=== PATIENT | male | born 1950 | race Caucasian/White ===

== ENCOUNTER 2018-03-31 15:24 | Inpatient (IN) | payer OTHER ==
[2018-03-31 19:25] VITALS: BMI 25.8
--- NOTE | 2018-03-31 21:23 | HP ---
"CIWA Score - CIWA Score Nausea/Vomitin-No Nausea/No Vomiting Muscle Tremors: 2 Anxiety: 3 Agitation: 3 Paroxysmal Sweats: 3 Orientation: 0-Oriented Tacttile Disturbances: 1-Very Mild Itch/Numbness Auditory Disturbances: 0-None Visual Disturbances: 1-Very Mild Sensitivity Headache: 0-None Present CIWA-Ar Total Score: 13 Admission ROS S - [facility] Chief Complaint: alcohol withdrawal sx Allergies/Adverse Reactions: Allergies Allergy/AdvReac Type Severity Reaction Status Date / Time No Known Allergies Allergy Verified 03/07/14 13:53 History of Present Illness: patient is a 67 yo male with hx of alcohol, cocaine, heroin dependence is here seeking detox. Last detox [facility] 2014. Reports hospitalized for right ankle cellulitis for two days [facility]. PMHX: HIV+ (no meds), GERD, blind r eye , glaucoma left eye. Denies suicidal / homicidal ideation. Denies hx of seizures or blackouts. Longest period of sobriety seven years. Reports relapsed passed five years ago and relapsed. | Reference #: [id number] Patient Name: Rah Vieira Date: 1950 Address: [address] [place] [address] Sex: Male Rx Written Rx Dispensed Drug Quantity Days Supply Prescriber Name 03/16/2018 03/18/2018 oxycodone hcl 20 mg tablet 60 30 Jenkins, Celina A 02/13/2018 02/16/2018 oxycodone hcl 20 mg tablet 60 30 Jenkins, Celina A 02/08/2018 02/08/2018 oxycodone hcl 30 mg tablet 21 7 Gerald David MD 01/14/2018 01/14/2018 oxycodone hcl 20 mg tablet 60 30 Jenkins, Celina A 01/07/2018 01/07/2018 oxycodone hcl 20 mg tablet 14 7 Jenkins, Celina A 12/09/2017 12/10/2017 oxycodone hcl 20 mg tablet 60 30 Bryan Ceron MD Patient Name: Rah Vieira Date: 1950 Address: [address] [place] [address] Sex: Male Rx Written Rx Dispensed Drug Quantity Days Supply Prescriber Name 01/01/2018 01/03/2018 oxycodone hcl 20 mg tablet 16 8 Seema Rahman Patient Name: Rah Vieira Date: 1950 Address: [address] [address] Sex: Male Rx Written Rx Dispensed Drug Quantity Days Supply Prescriber Name 11/04/2017 11/06/2017 oxycodone hcl 30 mg tablet 60 30 Jenkins, Celina A 10/08/2017 10/08/2017 oxycodone hcl 30 mg tablet 60 30 Jenkins, Celina A 09/30/2017 09/30/2017 oxycodone hcl 20 mg tablet 14 7 Bryan Ceron MD 08/20/2017 08/20/2017 oxycodone hcl 15 mg tablet 60 30 Jenkins, Celina A 06/25/2017 06/25/2017 oxycodone-acetaminophen 10-325 mg tab 60 30 Duane Nelson 05/27/2017 05/27/2017 oxycodone hcl 30 mg tablet 60 30 Bryan Ceron MD 05/20/2017 05/20/2017 oxycodone hcl 30 mg tablet 14 7 Bryan Ceron MD 05/13/2017 05/13/2017 oxycodone hcl 30 mg tablet 14 7 Bryan Ceron MD Patient Name: Rah Vieira Date: 1950 Address: [facility] [place] [address] Sex: Male Rx Written Rx Dispensed Drug Quantity Days Supply Prescriber Name 09/14/2017 09/29/2017 oxycodone hcl 30 mg tablet 5 2 Ronit Davenport 09/13/2017 09/14/2017 oxycodone hcl 30 mg tablet 60 15 Ronit Davenport 09/03/2017 09/03/2017 oxycodone hcl 30 mg tablet 40 10 Ronit Davenport Patient Name: Rah Vieira Jr Date: 1950 Address: [address] [place] [address] Sex: Male Rx Written Rx Dispensed Drug Quantity Days Supply Prescriber Name 08/08/2017 08/08/2017 oxycodone hcl 10 mg tablet 15 5 David Young 07/29/2017 07/29/2017 zolpidem tartrate 10 mg tablet 10 10 David Young 07/29/2017 07/29/2017 oxycodone hcl 10 mg tablet 30 10 David Young 04/25/2017 04/26/2017 oxycodone hcl 30 mg tablet 60 15 David Young Patient Name: Rah Vieira Date: 1950 Address: [address] [place] [address] Sex: Male Rx Written Rx Dispensed Drug Quantity Days Supply Prescriber Name 04/11/2017 04/11/2017 oxycodone hcl 30 mg tablet 60 15 David oYung Exam Limitations: No Limitations - Ebola screening Have you traveled outside of the country in the last 21 days: No Have you had contact with anyone from an Ebola affected area: No Have you been sick,other than usual withdrawal symptoms: No - Review of Systems Constitutional: Chills, Changes in sleep, Unintentional Wgt. Loss (10 lbs in the past three months) EENT: reports: No Symptoms Reported Respiratory: reports: No Symptoms reported GI: reports: Poor Appetite, Poor Fluid Intake : reports: No Symptoms Reported Musculoskeletal: reports: No Symptoms Reported Integumentary: reports: See HPI Neuro: reports: No Symptoms reported Endocrine: reports: Increased Thirst Hematology: reports: See HPI Psychiatric: reports: Orientated x3, Depressed Other Systems: Reviewed and Negative Patient History - Patient Medical History Hx Anemia: No Hx Asthma: No Hx Chronic Obstructive Pulmonary Disease (COPD): No Hx Cancer: No Hx Cardiac Disorders: No Hx Congestive Heart Failure: No Hx Hypertension: No Hx Hypercholesterolemia: No Hx Pacemaker: No HX Cerebrovascular Accident: No Hx Seizures: No Hx Dementia: No Hx Diabetes: No Hx Gastrointestinal Disorders: Yes (GERD ) Hx Genitourinary Disorders: No Hx Sexually Transmitted Disorders: No Hx Renal Disease (ESRD): No Hx Thyroid Disease: No Hx Human Immunodeficiency Virus (HIV): Yes (SINCE 1995 -T Cell = 950, no meds ) Hx Hepatitis C: Yes (Treated three months ago ) Hx Depression: Yes Hx Suicide Attempt: No Hx Bipolar Disorder: No Hx Schizophrenia: No - Patient Surgical History Past Surgical History: Yes Hx Neurologic Surgery: No Hx Cataract Extraction: No Hx Cardiac Surgery: No Hx Lung Surgery: No Hx Breast Surgery: No Hx Breast Biopsy: No Hx Abdominal Surgery: No Hx Appendectomy: No Hx Cholecystectomy: No Hx Genitourinary Surgery: No Hx Section: No Hx Orthopedic Surgery: Yes (R ANKLE REPLACEMENT IN 2006) Anesthesia Reaction: No - PPD History Previous Implant?: No Documented Results: Negative w/proof Date: 03/09/14 Results: 0 mm PPD to be Administered?: Yes - Smoking Cessation Smoking history: Current every day smoker Have you smoked in the past 12 months: Yes Aproximately how many cigarettes per day: 10 Hx Chewing Tobacco Use: No Initiated information on smoking cessation: Yes 'Breaking Loose' booklet given: 03/31/18 - Substance & Tx. History Hx Alcohol Use: Yes Hx Substance Use: Yes Substance Use Type: Alcohol, Heroin Hx Substance Use Treatment: Yes (Last detox [facility] 2014.) - Substances Abused Alcohol Route: Oral Frequency: Daily Amount used: one fith of bacardi + 24 oz x 8 cans of beer Age of first use: 17 Date of Last Use: 03/31/18 Family Disease History - Family Disease History Family Disease History: Other: Brother (hx of alcoholism, OBI ) Admission Physical Exam S - Vital Signs Vital Signs: Vital Signs - 24 hr 03/31/18 19:21 Temperature 98.7 F Pulse Rate 77 Respiratory 19 Rate Blood Pressure 129/69 - Physical General Appearance: Yes: Disheveled, Mild Distress, Sweating, Anxious HEENTM: Yes: EOMI, Hearing grossly Normal, Normal ENT Inspection, Normocephalic , Normal Voice, APRIL, Pharynx Normal, Tm's normal, Other (poor dentition, dry mucous membranes) Respiratory: Yes: Chest Non-Tender, Lungs Clear, Normal Breath Sounds, No Respiratory Distress, No Accessory Muscle Use Neck: Yes: Within Normal Limits Breast: Yes: Breast Exam Deferred Cardiology: Yes: Regular Rhythm, Regular Rate Abdominal: Yes: Normal Bowel Sounds, Non Tender, Flat Genitourinary: Yes: Within Normal Limits Back: Yes: Normal Inspection Musculoskeletal: Yes: full range of Motion, Gait Steady, Pelvis Stable, Other ( cane for ambulation) Extremities: Yes: Normal Capillary Refill, Normal Inspection, Normal Range of Motion, Non-Tender 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: 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: 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, Fully Oriented, Alert, Motor Strength 5/5, Depressed Affect Integumentary: Yes: Normal Color, Warm, Moist, Other (hyperpigmentation right ankle) Lymphatic: Yes: Within Normal Limits - Diagnostic (1) Alcohol dependence with withdrawal Current Visit: Yes Status: Acute Qualifiers: Complication of substance-induced condition: uncomplicated Qualified Code(s ): F10.230 - Alcohol dependence with withdrawal, uncomplicated (2) Opioid dependence Current Visit: Yes Status: Active (3) CELLULITIS RT ANKLE Current Visit: Yes Status: Chronic (4) GERD (gastroesophageal reflux disease) Current Visit: Yes Status: Chronic Qualifiers: Esophagitis presence: without esophagitis Qualified Code(s): K21.9 - Gastro -esophageal reflux disease without esophagitis (5) HIV Current Visit: Yes Status: Chronic Comment: currently not taking medication Cleared for Admission [facility] - Detox or Rehab [facility] Level of Care: Medically Managed Detox Regimen/Protocol: Librium [facility] Breath Alcohol Content Breath Alcohol Content: 0 Urine Drug Screen - Results Drug Screen Negative: No Urine Drug Screen Results: OPI-Opiates, FEN-Fentanyl"
[2018-03-31] MEDS ORDERED: MAG HYDROX/AL HYDROX/SIMETH 30 ML UNIT-DOSE CUP PO PRN (21:46)
[2018-03-31] MEDS ORDERED: chlordiazePOXIDE HCL 25 MG CAPSULE PO PRN (21:46)
[2018-03-31] MEDS ORDERED: guaiFENesin/D-METHORPHAN HB 10 ML UNIT-DOSE CUPS PO PRN (21:46)
[2018-03-31] MEDS ORDERED: MENTHOL/PHENOL 1 EACH UD MM PRN (21:46)
[2018-03-31] MEDS ORDERED: ACETAMINOPHEN 325 MG TABLET (FP) PO PRN (21:46)
[2018-03-31] MEDS ORDERED: P-EPHED 60MG/TRIPROLIDI 2.5MG TABLET PO PRN (21:46)
[2018-03-31] MEDS ORDERED: IBUPROFEN 400 MG TABLET (FP) PO PRN (21:46)
[2018-03-31] MEDS ORDERED: NICOTINE POLACRILEX 2 MG GUM BC PRN (21:46)
[2018-03-31] MEDS ORDERED: MAGNESIUM CITRATE 300 ML BOTTLE PO PRN (21:46)
[2018-03-31] MEDS ORDERED: MAGNESIUM HYDROX 2400MG/30ML ORAL SUSPENSION 30 ML CUP PO PRN (21:46)
[2018-03-31] MEDS ORDERED: LOPERAMIDE HCL 2 MG CAPSULE PO PRN (21:46)
--- NOTE | 2018-03-31 21:54 | PN ---
[facility] Progress Note Note: Patient agreed to admission for ETOH detox. Patient is aware that he will not receive Percocet on the unit for pain, and other alternatives will be provided, patient verbalizes understanding. Reports he was not had opiates in the past two days since he was admitted to [facility] prior to presenting to this facility. Continue to monitor
[2018-03-31] MEDS ORDERED: MELATONIN 5 MG TABLETS PO PRN (22:00)
[2018-03-31] MEDS ORDERED: chlordiazePOXIDE HCL 25 MG CAPSULE PO ONE (22:30)
[2018-04-01] MEDS: SULFAMETHOXAZOLE/TRIMETHOPRIM 800MG/160MG D.S. TABLET PO SCH ×3 (00:01→22:48)
[2018-04-01] MEDS: CYCLOBENZAPRINE HCL 10 MG TABLET (FP) PO SCH ×4 (00:01→22:48)
[2018-04-01] MEDS: LATANOPROST 0.005% OPHTH SOLN 2.5ML BOTTLE OS SCH ×2 (00:01→22:50)
[2018-04-01] MEDS: THIAMINE HCL 100 MG TABLET (FP) PO SCH ×2 (00:01→23:05)
[2018-04-01] MEDS: BACITRACIN 0.9 GM PACKET TP SCH ×3 (00:01→22:49)
[2018-04-01] MEDS: BRIMONIDINE TARTRATE 0.15% OPHTHALMIC 5 ML BOTTLE OS SCH ×3 (00:02→22:48)
[2018-04-01] MEDS: chlordiazePOXIDE HCL 25 MG CAPSULE PO SCH ×5 (06:00→22:48)
--- NOTE | 2018-04-01 08:54 | CONSULT ---
[facility] Psychiatric Consult - Data Date of interview: 04/01/18 Admission source: [facility] Identifying data: This is a 67 years old male, single, living alone, unemployed , on SSI, ambulating with cane, with no psychiatric hospitalization history, with ;long history of Alochol, Opioids, Cocaine and Nicotine dependence, reporting Alcohol withdrawal symptoms and seeking detox. Denies suicidal and homicidal history. Substance Abuse History: - Smoking Cessation. Smoking history: Current every day smoker. Have you smoked in the past 12 months: Yes. Aproximately how many cigarettes per day: 10. Hx Chewing Tobacco Use: No. Initiated information on smoking cessation: Yes. 'Breaking Loose' booklet given: 03/31/18. - Substance & Tx. History. Hx Alcohol Use: Yes. Hx Substance Use: Yes. Substance Use Type : Alcohol, Heroin. Hx Substance Use Treatment: Yes (Last detox [facility] 2014.). - Substances Abused. Alcohol. Route: Oral. Frequency: Daily. Amount used: one fith of bacardi + 24 oz x 8 cans of beer. Age of first use: 17. Date of Last Use: 03/31/18 Medical History: GERD, HIV+, HepC+, Right eye blindness, left eye Glaucoma, ambultes with Cane, history of Cellulitis. Psychiatric History: Patient reports history of depression and anxiety, reports insomnia, reports taling prior to admission: Seroquel 100mg po qhs. Denies history of psychiatric admissions. Physical/Sexual Abuse/Trauma History: Denies Additional Comment: Seroquel 100mg po qhs Mental Status Exam - Mental Status Exam Alert and Oriented to: Person Cognitive Function: Fair Patient Appearance: Unkempt Mood: Sad Affect: Flat Patient Behavior: Cooperative Speech Pattern: Appropriate Voice Loudness: Mildly Soft/Quiet Thought Process: Circumstantial, Goal Oriented Thought Disorder: Being Controlled Hallucinations: Denies Suicidal Ideation: Denies Homicidal Ideation: Denies Insight/Judgement: Fair Sleep: Difficulty falling asleep Appetite: Weight loss Muscle strength/Tone: Mild Hypotonicity Gait/Station: Shuffling Additional Comments: Seroquel 100mg po qhs Psychiatric Findings - Problem List ([place] 1, 2,3) (1) CELLULITIS RT ANKLE Current Visit: Yes Status: Chronic (2) GERD (gastroesophageal reflux disease) Current Visit: Yes Status: Chronic Qualifiers: Esophagitis presence: without esophagitis Qualified Code(s): K21.9 - Gastro -esophageal reflux disease without esophagitis (3) HIV Current Visit: Yes Status: Chronic Comment: currently not taking medication (4) Alcohol dependence Current Visit: No Status: Active (5) Cocaine dependence Current Visit: No Status: Acute (6) HEP. C Current Visit: No Status: Chronic (7) Non-healing ulcer of ankle Current Visit: No Status: Chronic - Initial Treatment Plan Initial Treatment Plan: Seroquel 100mg po qhs
--- NOTE | 2018-04-01 09:51 | EKG ---
Test Reason : Blood Pressure : / mmHG Vent. Rate : 071 BPM Atrial Rate : 071 BPM P-R Int : 152 ms QRS Dur : 130 ms QT Int : 434 ms P-R-T Axes : 043 -65 052 degrees QTc Int : 471 ms NORMAL SINUS RHYTHM RIGHT BUNDLE BRANCH BLOCK LEFT ANTERIOR FASCICULAR BLOCK BIFASCICULAR BLOCK MINIMAL VOLTAGE CRITERIA FOR LVH, MAY BE NORMAL VARIANT ABNORMAL ECG NO PREVIOUS ECGS AVAILABLE Confirmed by CANDY HUGHES, KIM ([id number]) on 04/01/2018 9:51:08 AM Referred By: Confirmed By:KIM GUPTA MD
[2018-04-01 10:06] LABS: HEMATOCRIT 32.1 % (35.4-49); HEMOGLOBIN 10.1 GM/dL (11.7-16.9); MCHC 31.5 g/dl (32.0-35.9); MEAN CELL VOLUME 82.7 fl (80-96); MEAN PLT VOLUME 9.2 fl (7.5-11.1); PLATELET COUNT 206 K/MM3 (134-434); RBC 3.88 M/mm3 (4.00-5.60); RDW 17.4 % (11.9-15.9); WHITE BLOOD COUNT 5.1 K/mm3 (4.0-10.0)
--- NOTE | 2018-04-01 10:28 | PN ---
S CIWA - CIWA Score Nausea/Vomitin-No Nausea/No Vomiting Muscle Tremors: 4-Moderate,w/Arms Extend Anxiety: 2 Agitation: 3 Paroxysmal Sweats: 1-Minimal Palms Moist Orientation: 0-Oriented Tacttile Disturbances: 1-Very Mild Itch/Numbness Auditory Disturbances: 1-Very Mild Visual Disturbances: 0-None Headache: 0-None Present CIWA-Ar Total Score: 12 [facility] Progress Note (SOAP) Subjective: sweat tremor headache anxiety patient stated that he is on monthly opiate based medication for pain last took "many days ago" patient denies opioid withdrawal sx denies pain Objective: 04/01/18 10:27 Vital Signs Temperature 97.5 F L 04/01/18 09:53 Pulse Rate 63 04/01/18 09:53 Respiratory Rate 19 04/01/18 09:53 Blood Pressure 128/75 04/01/18 09:53 O2 Sat by Pulse Oximetry (%) Laboratory Last Values WBC 5.1 K/mm3 (4.0-10.0) 04/01/18 07:30 RBC 3.88 M/mm3 (4.00-5.60) L 04/01/18 07:30 Hgb 10.1 GM/dL (11.7-16.9) L 04/01/18 07:30 Hct 32.1 % (35.4-49) L 04/01/18 07:30 MCV 82.7 fl (80-96) 04/01/18 07:30 MCH 26.0 pg (25.7-33.7) D 04/01/18 07:30 MCHC 31.5 g/dl (32.0-35.9) L 04/01/18 07:30 RDW 17.4 % (11.9-15.9) H 04/01/18 07:30 Plt Count 206 K/MM3 (134-434) 04/01/18 07:30 MPV 9.2 fl (7.5-11.1) 04/01/18 07:30 lab noted Assessment: 04/01/18 10:27 alcohol withdrawal sx Plan: continue alcohol detox
[2018-04-01 10:49] LABS: ALK PHOS 88 U/L (45-117); ANION GAP 7 MMOL/L (8-16); BILIRUBIN,TOTAL 0.2 mg/dL (0.2-1); BLOOD UREA NITROGEN 22 mg/dL (7-18); CALCIUM 8.4 mg/dL (8.5-10.1); CHLORIDE 108 mmol/L (98-107); CO2 23 mmol/L (21-32); CREATININE 1.2 mg/dL (0.55-1.3); GLUCOSE,RANDOM 81 mg/dL (74-106); POTASSIUM 4.5 mmol/L (3.5-5.1); SGOT/AST 18 U/L (15-37); SGPT/ALT 14 U/L (13-61); SODIUM 137 mmol/L (136-145); TOT PROT 7.4 g/dl (6.4-8.2)
[2018-04-01] MEDS: NICOTINE 14 MG/24 HOURS TOPICAL PATCH TD SCH (12:31)
[2018-04-01] MEDS: PRENATAL VITAMINS W/ FOLIC ACID TABLET (FP) PO SCH (12:32)
[2018-04-01] MEDS: hydrOXYzine PAMOATE 50 MG CAPSULE (FP) PO PRN (14:54)
[2018-04-01] MEDS: QUEtiapine FUMARATE 100 MG TABLET (FP) PO SCH (20:55)
[2018-04-02] MEDS: chlordiazePOXIDE HCL 25 MG CAPSULE PO SCH ×3 (06:37→17:54)
[2018-04-02] MEDS: CYCLOBENZAPRINE HCL 10 MG TABLET (FP) PO SCH ×3 (06:37→23:39)
--- NOTE | 2018-04-02 10:37 | PN ---
S CIWA - CIWA Score Nausea/Vomitin-No Nausea/No Vomiting Muscle Tremors: 3 Anxiety: 2 Agitation: 2 Paroxysmal Sweats: 1-Minimal Palms Moist Orientation: 0-Oriented Tacttile Disturbances: 0-None Auditory Disturbances: 0-None Visual Disturbances: 0-None Headache: 1-Very Mild CIWA-Ar Total Score: 9 [facility] Progress Note (SOAP) Subjective: tremor sweat restlessness Objective: 04/02/18 10:37 Vital Signs Temperature 97.7 F 04/02/18 07:40 Pulse Rate 61 04/02/18 07:40 Respiratory Rate 18 04/02/18 07:40 Blood Pressure 130/70 04/02/18 07:40 O2 Sat by Pulse Oximetry (%) Laboratory Last Values WBC 5.1 K/mm3 (4.0-10.0) 04/01/18 07:30 RBC 3.88 M/mm3 (4.00-5.60) L 04/01/18 07:30 Hgb 10.1 GM/dL (11.7-16.9) L 04/01/18 07:30 Hct 32.1 % (35.4-49) L 04/01/18 07:30 MCV 82.7 fl (80-96) 04/01/18 07:30 MCH 26.0 pg (25.7-33.7) D 04/01/18 07:30 MCHC 31.5 g/dl (32.0-35.9) L 04/01/18 07:30 RDW 17.4 % (11.9-15.9) H 04/01/18 07:30 Plt Count 206 K/MM3 (134-434) 04/01/18 07:30 MPV 9.2 fl (7.5-11.1) 04/01/18 07:30 Sodium 137 mmol/L (136-145) 04/01/18 07:30 Potassium 4.5 mmol/L (3.5-5.1) 04/01/18 07:30 Chloride 108 mmol/L (98-107) H 04/01/18 07:30 Carbon Dioxide 23 mmol/L (21-32) 04/01/18 07:30 Anion Gap 7 MMOL/L (8-16) L 04/01/18 07:30 BUN 22 mg/dL (7-18) H 04/01/18 07:30 Creatinine 1.2 mg/dL (0.55-1.3) 04/01/18 07:30 Creat Clearance w eGFR > 60 (>60) 04/01/18 07:30 Random Glucose 81 mg/dL (74-106) 04/01/18 07:30 Calcium 8.4 mg/dL (8.5-10.1) L 04/01/18 07:30 Total Bilirubin 0.2 mg/dL (0.2-1) 04/01/18 07:30 AST 18 U/L (15-37) 04/01/18 07:30 ALT 14 U/L (13-61) 04/01/18 07:30 Alkaline Phosphatase 88 U/L (45-117) 04/01/18 07:30 Total Protein 7.4 g/dl (6.4-8.2) 04/01/18 07:30 Albumin 3.0 g/dl (3.4-5.0) L 04/01/18 07:30 RPR Titer Nonreactive (NONREACTIVE) 04/01/18 07:30 lab noted Assessment: 04/02/18 10:37 withdrawal sx Plan: continue detox
[2018-04-02] MEDS: PRENATAL VITAMINS W/ FOLIC ACID TABLET (FP) PO SCH (12:42)
[2018-04-02] MEDS: NICOTINE 14 MG/24 HOURS TOPICAL PATCH TD SCH (12:42)
[2018-04-02] MEDS: BACITRACIN 0.9 GM PACKET TP SCH ×2 (12:42→23:39)
[2018-04-02] MEDS: SULFAMETHOXAZOLE/TRIMETHOPRIM 800MG/160MG D.S. TABLET PO SCH ×2 (12:42→23:41)
[2018-04-02] MEDS: BRIMONIDINE TARTRATE 0.15% OPHTHALMIC 5 ML BOTTLE OS SCH ×2 (12:43→23:39)
[2018-04-02 18:28] LABS: URINE APPEARANCE CLEAR; URINE BILIRUBIN NEGATIVE (<2.0 mg/dL); URINE COLOR LTYELLOW; URINE GLUCOSE (UA) NEGATIVE (NEGATIVE); URINE KETONE NEGATIVE (NEGATIVE); URINE LEUK ESTERASE NEGATIVE (NEGATIVE); URINE NITRITE NEGATIVE (NEGATIVE); URINE PROTEIN NEGATIVE (NEGATIVE); URINE UROBILINOGEN NEGATIVE mg/dL (0.2-1.0)
[2018-04-02] MEDS ORDERED: cloNIDine HCL 0.1 MG TABLET PO ONE (22:44)
[2018-04-02] MEDS: ONDANSETRON *ODT* 4 MG TABLET SL PRN (23:02)
[2018-04-02] MEDS: THIAMINE HCL 100 MG TABLET (FP) PO SCH (23:16)
[2018-04-02] MEDS: chlordiazePOXIDE 5 MG CAPSULE PO SCH (23:18)
[2018-04-02] MEDS: QUEtiapine FUMARATE 100 MG TABLET (FP) PO SCH (23:39)
[2018-04-02] MEDS: LATANOPROST 0.005% OPHTH SOLN 2.5ML BOTTLE OS SCH (23:39)
[2018-04-03] MEDS: CYCLOBENZAPRINE HCL 10 MG TABLET (FP) PO SCH (06:45)
[2018-04-03] MEDS: chlordiazePOXIDE 5 MG CAPSULE PO SCH ×2 (06:46→11:45)
[2018-04-03] MEDS: ONDANSETRON *ODT* 4 MG TABLET SL PRN (07:14)
[2018-04-03] MEDS ORDERED: IBUPROFEN 400 MG TABLET (FP) PO PRN (09:36)
[2018-04-03] MEDS ORDERED: TRIMETHOBENZAMIDE HCL 200MG/2ML INJ IM PRN (09:49)
[2018-04-03 10:01] VITALS: BP 148/88; PULSE 98; TEMP 98.4
--- NOTE | 2018-04-03 10:28 | PN ---
S Progress Note Note: PATIENT C/O SHAKES AND NAUSEA AND VOMITING. Vital Signs Temperature 98.4 F 04/03/18 10:00 Pulse Rate 98 H 04/03/18 10:00 Respiratory Rate 18 04/03/18 10:00 Blood Pressure 148/88 04/03/18 10:00 O2 Sat by Pulse Oximetry (%) Laboratory Tests 04/01/18 04/01/18 04/01/18 07:30 07:30 07:30 WBC 5.1 RBC 3.88 L Hgb 10.1 L Hct 32.1 L MCV 82.7 MCH 26.0 D MCHC 31.5 L RDW 17.4 H Plt Count 206 MPV 9.2 Sodium 137 Potassium 4.5 Chloride 108 H Carbon Dioxide 23 Anion Gap 7 L BUN 22 H Creatinine 1.2 Creat Clearance w eGFR > 60 Random Glucose 81 Calcium 8.4 L Total Bilirubin 0.2 AST 18 ALT 14 Alkaline Phosphatase 88 Total Protein 7.4 Albumin 3.0 L Urine Color Urine Appearance Urine pH Ur Specific Alexis Urine Protein Urine Glucose (UA) Urine Ketones Urine Blood Urine Nitrite Urine Bilirubin Urine Urobilinogen Ur Leukocyte Esterase RPR Titer Nonreactive 04/02/18 14:15 WBC RBC Hgb Hct MCV MCH MCHC RDW Plt Count MPV Sodium Potassium Chloride Carbon Dioxide Anion Gap BUN Creatinine Creat Clearance w eGFR Random Glucose Calcium Total Bilirubin AST ALT Alkaline Phosphatase Total Protein Albumin Urine Color Ltyellow Urine Appearance Clear Urine pH 6.0 Ur Specific Alexis 1.020 Urine Protein Negative Urine Glucose (UA) Negative Urine Ketones Negative Urine Blood Negative Urine Nitrite Negative Urine Bilirubin Negative Urine Urobilinogen Negative Ur Leukocyte Esterase Negative RPR Titer SKIN WARM AND MOIST CAR S1S2 RESP CTA BL GI SOFT, BS+ NT EXT +TREMORS, FULL ROM ALERT AND ORIENTED X 3 A/P WITHDRAWAL SYNDROME CONTINUE DETOX ORAL FLUIDS ENCOURAGED TIGAN 200MG IM PRN ORDERED CONTINUE TO MONITOR CLINICALLY
[2018-04-03] MEDS: PRENATAL VITAMINS W/ FOLIC ACID TABLET (FP) PO SCH (11:41)
[2018-04-03] MEDS: hydrOXYzine PAMOATE 50 MG CAPSULE (FP) PO PRN (11:41)
[2018-04-03] MEDS: SULFAMETHOXAZOLE/TRIMETHOPRIM 800MG/160MG D.S. TABLET PO SCH (11:41)
[2018-04-03] MEDS: BRIMONIDINE TARTRATE 0.15% OPHTHALMIC 5 ML BOTTLE OS SCH (11:42)
[2018-04-03] MEDS: NICOTINE 14 MG/24 HOURS TOPICAL PATCH TD SCH (11:43)
[2018-04-03] MEDS: BACITRACIN 0.9 GM PACKET TP SCH (12:02)
[2018-04-03] MEDS ORDERED: chlordiazePOXIDE HCL 10 MG CAPSULE PO SCH (23:00)
--- NOTE | 2018-04-04 10:38 | EKG ---
Test Reason : Blood Pressure : / mmHG Vent. Rate : 064 BPM Atrial Rate : 064 BPM P-R Int : 138 ms QRS Dur : 128 ms QT Int : 434 ms P-R-T Axes : 030 -67 010 degrees QTc Int : 447 ms NORMAL SINUS RHYTHM RIGHT BUNDLE BRANCH BLOCK LEFT ANTERIOR FASCICULAR BLOCK BIFASCICULAR BLOCK MINIMAL VOLTAGE CRITERIA FOR LVH, MAY BE NORMAL VARIANT ABNORMAL ECG WHEN COMPARED WITH ECG OF 31-MAR-2018 23:28, NONSPECIFIC T WAVE ABNORMALITY NOW EVIDENT IN INFERIOR LEADS Confirmed by JENA OSMAN MD ([id number]) on 04/04/2018 10:37:48 AM Referred By: Confirmed By:JENA OSMAN MD
== END 2018-04-03 13:50 | disposition left against medical advice (07) | DRG 894 ==
LOC: YASAS 15:24 → Y6N 22:05
PROC: HZ2ZZZZ Detoxification Services for Substance Abuse Treatment (ICD-10-PCS; principal; 2018-03-31)
DX: F10.230 Alcohol dependence with withdrawal, uncomplicated (principal); F14.20 Cocaine dependence, uncomplicated; L03.115 Cellulitis of right lower limb; L97.30 Non-pressure chronic ulcer of unspecified ankle; F17.210 Nicotine dependence, cigarettes, uncomplicated; K21.9 Gastro-esophageal reflux disease without esophagitis; Z21 Asymptomatic human immunodeficiency virus [HIV] infection status; B18.2 Chronic viral hepatitis C; H54.40 Blindness, one eye, unspecified eye; H40.9 Unspecified glaucoma; R26.2 Difficulty in walking, not elsewhere classified; Z99.89 Dependence on other enabling machines and devices
CPT/HCPCS: 36415; 80053; 81003; 85027; 86593; 93005; 93010; J0735; Q0162

== ENCOUNTER 2020-12-06 10:23 | Inpatient (IN) | payer MEDICARE, OTHER ==
[2020-12-06 13:20] VITALS: BMI 27.3
[2020-12-06] MEDS ORDERED: IBUPROFEN 400 MG TABLET (FP) PO PRN (14:04)
[2020-12-06] MEDS ORDERED: METHOCARBAMOL 500 MG TABLET PO PRN (14:04)
[2020-12-06] MEDS ORDERED: BISMUTH SUBSALICYLATE 262 MG/15 ML BTL PO PRN (14:04)
[2020-12-06] MEDS ORDERED: METHADONE HCL 10 MG TABLET (FOR DETOX USE ONLY) PO ONE (14:04)
[2020-12-06] MEDS ORDERED: MAGNESIUM HYDROX 2400MG/30ML ORAL SUSPENSION 30 ML CUP PO PRN (14:04)
[2020-12-06] MEDS ORDERED: ONDANSETRON *ODT* 4 MG TABLET SL PRN (14:04)
[2020-12-06] MEDS ORDERED: cloNIDine HCL 0.1 MG TABLET PO PRN (14:04)
[2020-12-06] MEDS ORDERED: MAGNESIUM CITRATE 300 ML BOTTLE PO PRN (14:04)
[2020-12-06] MEDS ORDERED: MAG HYDROX/AL HYDROX/SIMETH 30 ML UNIT-DOSE CUP PO PRN (14:04)
[2020-12-06] MEDS ORDERED: diazePAM 5 MG TABLET PO PRN (14:04)
[2020-12-06] MEDS ORDERED: ACETAMINOPHEN 325 MG TABLET (FP) PO PRN ×2 (14:04)
[2020-12-06] MEDS ORDERED: MENTHOL/PHENOL 1 EACH UD MM PRN (14:04)
[2020-12-06] MEDS: PRENATAL VITAMINS W/ FOLIC ACID TABLET (FP) PO SCH (15:34)
[2020-12-06] MEDS: NICOTINE 21 MG/24 HOURS TOPICAL PATCH TD SCH (15:34)
[2020-12-06] MEDS: NICOTINE POLACRILEX 2 MG GUM BUC PRN (15:35)
[2020-12-06] MEDS: diazePAM 5 MG TABLET PO SCH ×3 (15:41→22:42)
[2020-12-06] MEDS: hydrOXYzine PAMOATE 25 MG CAPSULE (FP) PO SCH ×2 (18:00→22:43)
[2020-12-06] MEDS: BRIMONIDINE TARTRATE 0.15% OPHTHALMIC 5 ML BOTTLE OS SCH (22:43)
[2020-12-06] MEDS: LATANOPROST 0.005% OPHTH SOLN 2.5ML BOTTLE OS SCH (22:43)
[2020-12-06] MEDS: THIAMINE HCL 100 MG TABLET (FP) PO SCH (22:43)
[2020-12-06] MEDS: MELATONIN 5 MG TABLETS PO SCH (22:43)
[2020-12-07] MEDS: diazePAM 5 MG TABLET PO SCH ×4 (07:23→23:02)
[2020-12-07] MEDS: hydrOXYzine PAMOATE 25 MG CAPSULE (FP) PO SCH ×5 (07:24→23:02)
[2020-12-07] MEDS ORDERED: METHADONE (DETOX) 20 MG, METHADONE (DETOX) 5 MG PO ONE (10:00)
[2020-12-07] MEDS: PRENATAL VITAMINS W/ FOLIC ACID TABLET (FP) PO SCH (11:05)
[2020-12-07] MEDS: TOLNAFTATE 1% CREAM 15 GM TUBE TP SCH ×2 (11:07→23:02)
[2020-12-07] MEDS: NICOTINE POLACRILEX 2 MG GUM BUC PRN (11:07)
[2020-12-07] MEDS: NICOTINE 21 MG/24 HOURS TOPICAL PATCH TD SCH (11:07)
[2020-12-07] MEDS: BICTEGRAV/EMTRICIT/TENOFOV (BIKTARVY) 50-200-25 MG TABLET PO SCH (11:08)
[2020-12-07] MEDS: BRIMONIDINE TARTRATE 0.15% OPHTHALMIC 5 ML BOTTLE OS SCH ×2 (11:08→23:02)
[2020-12-07] MEDS ORDERED: METHADONE HCL 5 MG TABLET (FOR DETOX USE ONLY) ONE (11:09)
[2020-12-07] MEDS ORDERED: METHADONE HCL 10 MG TABLET (FOR DETOX USE ONLY) ONE (11:09)
[2020-12-07] MEDS: MELATONIN 5 MG TABLETS PO SCH (23:02)
[2020-12-07] MEDS: THIAMINE HCL 100 MG TABLET (FP) PO SCH (23:03)
[2020-12-07] MEDS: LATANOPROST 0.005% OPHTH SOLN 2.5ML BOTTLE OS SCH (23:03)
[2020-12-08] MEDS: hydrOXYzine PAMOATE 25 MG CAPSULE (FP) PO SCH ×2 (06:10→11:14)
[2020-12-08] MEDS: diazePAM 5 MG TABLET PO SCH ×3 (06:10→22:31)
[2020-12-08] MEDS: BICTEGRAV/EMTRICIT/TENOFOV (BIKTARVY) 50-200-25 MG TABLET PO SCH (07:07)
[2020-12-08] MEDS ORDERED: METHADONE HCL 10 MG TABLET (FOR DETOX USE ONLY) PO ONE (10:00)
[2020-12-08] MEDS ORDERED: hydrOXYzine PAMOATE 25 MG CAPSULE (FP) PO PRN (10:03)
[2020-12-08 10:10] LABS: HEMATOCRIT 37.7 % (35.4-49); MCH 26.8 pg (25.7-33.7); MCHC 31.8 g/dl (32.0-35.9); MEAN CELL VOLUME 84.2 fl (80-96); MEAN PLT VOLUME 9.7 fl (7.5-11.1); PLATELET COUNT 227 10^3/uL (134-434); RBC 4.48 M/mm3 (4.00-5.60); RDW 16.9 % (11.9-15.9); WHITE BLOOD COUNT 4.7 K/mm3 (4.0-10.0)
[2020-12-08] MEDS: PRENATAL VITAMINS W/ FOLIC ACID TABLET (FP) PO SCH (11:06)
[2020-12-08] MEDS: TOLNAFTATE 1% CREAM 15 GM TUBE TP SCH ×2 (11:07→22:33)
[2020-12-08] MEDS: NICOTINE 21 MG/24 HOURS TOPICAL PATCH TD SCH (11:07)
[2020-12-08] MEDS: BRIMONIDINE TARTRATE 0.15% OPHTHALMIC 5 ML BOTTLE OS SCH ×2 (11:12→22:34)
[2020-12-08] MEDS: THIAMINE HCL 100 MG TABLET (FP) PO SCH (22:31)
[2020-12-08] MEDS: MELATONIN 5 MG TABLETS PO SCH (22:31)
[2020-12-08] MEDS: LATANOPROST 0.005% OPHTH SOLN 2.5ML BOTTLE OS SCH (22:34)
[2020-12-09] MEDS: diazePAM 5 MG TABLET PO SCH ×2 (06:33→18:29)
[2020-12-09] MEDS ORDERED: METHADONE HCL 5 MG TABLET (FOR DETOX USE ONLY) ONE (09:50)
[2020-12-09] MEDS ORDERED: METHADONE HCL 10 MG TABLET (FOR DETOX USE ONLY) ONE (09:50)
[2020-12-09] MEDS ORDERED: METHADONE (DETOX) 10 MG, METHADONE (DETOX) 5 MG PO ONE (10:00)
[2020-12-09] MEDS: NICOTINE 21 MG/24 HOURS TOPICAL PATCH TD SCH (10:46)
[2020-12-09] MEDS: PRENATAL VITAMINS W/ FOLIC ACID TABLET (FP) PO SCH (10:46)
[2020-12-09] MEDS: BRIMONIDINE TARTRATE 0.15% OPHTHALMIC 5 ML BOTTLE OS SCH (10:46)
[2020-12-09] MEDS: TOLNAFTATE 1% CREAM 15 GM TUBE TP SCH (10:46)
[2020-12-09 17:42] VITALS: BP 159/92; PULSE 77; TEMP 96.8
[2020-12-10] MEDS ORDERED: diazePAM 5 MG TABLET PO ONE (06:00)
[2020-12-10] MEDS ORDERED: METHADONE HCL 10 MG TABLET (FOR DETOX USE ONLY) PO ONE (10:00)
[2020-12-11] MEDS ORDERED: METHADONE HCL 5 MG TABLET (FOR DETOX USE ONLY) PO ONE (06:00)
== END 2020-12-09 18:10 | disposition home or self-care (01) | DRG 897 ==
LOC: YASAS 10:23 → Y3N 13:49
PROVIDERS: ADMIT Allergy & Immunology; ATTEND Allergy & Immunology
PROC: HZ2ZZZZ Detoxification Services for Substance Abuse Treatment (ICD-10-PCS; principal; 2020-12-06)
DX: F10.230 Alcohol dependence with withdrawal, uncomplicated (principal); F11.20 Opioid dependence, uncomplicated; F14.20 Cocaine dependence, uncomplicated; L97.319 Non-pressure chronic ulcer of right ankle with unspecified severity; F17.210 Nicotine dependence, cigarettes, uncomplicated; Z21 Asymptomatic human immunodeficiency virus [HIV] infection status; K21.9 Gastro-esophageal reflux disease without esophagitis; B35.3 Tinea pedis; H40.9 Unspecified glaucoma
CPT/HCPCS: 36415; 85027; 86593; 86780; C9803; J0735; U0003; U0005

== ENCOUNTER 2022-03-06 11:01 | Inpatient (IN) | payer OTHER ==
[2022-03-06 12:33] VITALS: BMI 28.0
[2022-03-06] MEDS ORDERED: IBUPROFEN 400 MG TABLET (FP) PO PRN (13:52)
[2022-03-06] MEDS ORDERED: ONDANSETRON *ODT* 4 MG TABLET SL PRN (13:52)
[2022-03-06] MEDS ORDERED: MAGNESIUM HYDROX 2400MG/30ML ORAL SUSPENSION 30 ML CUP PO PRN (13:52)
[2022-03-06] MEDS ORDERED: ACETAMINOPHEN 325 MG TABLET (FP) PO PRN ×2 (13:52)
[2022-03-06] MEDS ORDERED: BISMUTH SUBSALICYLATE 524 MG/30 ML PO PRN (13:52)
[2022-03-06] MEDS ORDERED: IBUPROFEN 600 MG TABLET (FP) PO PRN (13:52)
[2022-03-06] MEDS ORDERED: MAGNESIUM CITRATE 300 ML BOTTLE PO PRN (13:52)
[2022-03-06] MEDS ORDERED: DICYCLOMINE HCL 10 MG CAPSULE PO PRN (13:52)
[2022-03-06] MEDS ORDERED: BENZOCAINE/MENTHOL (CHLORASEPTIC ) LOZENGE MM PRN (13:52)
[2022-03-06] MEDS ORDERED: LOPERAMIDE HCL 2 MG CAPSULE PO PRN (13:52)
[2022-03-06] MEDS ORDERED: chlordiazePOXIDE HCL 25 MG CAPSULE PO PRN (13:52)
[2022-03-06] MEDS ORDERED: NALOXONE HCL (KLOXXADO) 8 MG SPRAY NS PRN (13:52)
[2022-03-06] MEDS ORDERED: hydrOXYzine PAMOATE 25 MG CAPSULE (FP) PO SCH (14:00)
[2022-03-06] MEDS ORDERED: methaDONE HCL 10 MG TABLET PO SCH (14:15)
[2022-03-06] MEDS ORDERED: PATIENT'S OWN MEDICATION (NON-FORMULARY) (Lisinopril/Hydrochlorothiazide [Lisinopril-Hctz PO SCH (14:15)
[2022-03-06] MEDS: SULFAMETHOXAZOLE/TRIMETHOPRIM 800MG/160MG D.S. TABLET PO SCH (14:56)
[2022-03-06] MEDS: METHOCARBAMOL 500 MG TABLET PO PRN ×2 (14:56→22:13)
[2022-03-06] MEDS: PRENATAL VITAMINS W/ FOLIC ACID TABLET (FP) PO SCH (14:56)
[2022-03-06] MEDS: BICTEGRAV/EMTRICIT/TENOFOV (BIKTARVY) 50-200-25 MG TABLET PO SCH (14:56)
[2022-03-06] MEDS: NICOTINE 21 MG/24 HOURS TOPICAL PATCH TD SCH (15:01)
[2022-03-06] MEDS ORDERED: methaDONE 40 MG, methaDONE 30 MG PO ONE (16:15)
[2022-03-06] MEDS: chlordiazePOXIDE HCL 25 MG CAPSULE PO SCH ×2 (19:33→22:14)
[2022-03-06] MEDS: THIAMINE HCL 100 MG TABLET (FP) PO SCH (22:13)
[2022-03-06] MEDS: ATORVASTATIN CA 10 MG TABLET (FP) PO SCH (22:13)
[2022-03-06] MEDS: MELATONIN 5 MG TABLETS PO SCH (22:13)
[2022-03-06] MEDS: DOXYCYCLINE HYCLATE 100 MG TABLET PO SCH (22:13)
[2022-03-07] MEDS: chlordiazePOXIDE HCL 25 MG CAPSULE PO SCH ×4 (05:37→22:21)
[2022-03-07] MEDS: DOXYCYCLINE HYCLATE 100 MG TABLET PO SCH ×2 (05:39→18:01)
[2022-03-07] MEDS: methaDONE 40 MG, methaDONE 30 MG PO SCH (05:39)
[2022-03-07] MEDS: BICTEGRAV/EMTRICIT/TENOFOV (BIKTARVY) 50-200-25 MG TABLET PO SCH (07:00)
[2022-03-07] MEDS: PRENATAL VITAMINS W/ FOLIC ACID TABLET (FP) PO SCH (10:14)
[2022-03-07] MEDS: SULFAMETHOXAZOLE/TRIMETHOPRIM 800MG/160MG D.S. TABLET PO SCH (10:15)
[2022-03-07] MEDS: NICOTINE 21 MG/24 HOURS TOPICAL PATCH TD SCH (10:15)
[2022-03-07] MEDS: LISINOPRIL 20 MG TABLET PO SCH (10:15)
[2022-03-07] MEDS: HYDROCHLOROTHIAZIDE 25 MG TABLET (FP) PO SCH (10:15)
[2022-03-07 10:55] LABS: ALBUMIN 2.7 g/dl (3.4-5.0); BLOOD UREA NITROGEN 40.7 mg/dL (7-18)
[2022-03-07 10:58] LABS: CREATININE 1.8 mg/dL (0.55-1.3)
[2022-03-07 11:00] LABS: TOT PROT 6.2 g/dl (6.4-8.2)
[2022-03-07 11:01] LABS: BILIRUBIN,TOTAL 1.2 mg/dL (0.2-1); HEMATOCRIT 28.2 % (35.4-49); HEMOGLOBIN 9.3 GM/dL (11.7-16.9); MCH 30.1 pg (25.7-33.7); MCHC 33.1 g/dl (32.0-35.9); MEAN CELL VOLUME 90.8 fl (80-96); MEAN PLT VOLUME 9.3 fl (7.5-11.1); PLATELET COUNT 195 10^3/uL (134-434); WHITE BLOOD COUNT 3.8 K/mm3 (4.0-10.0)
[2022-03-07] MEDS: CLINDAMYCIN PHOSPHATE 1% TOPICAL GEL 30 GM TUBE TP SCH ×2 (14:29→23:38)
[2022-03-07] MEDS: ATORVASTATIN CA 10 MG TABLET (FP) PO SCH (22:21)
[2022-03-07] MEDS: THIAMINE HCL 100 MG TABLET (FP) PO SCH (22:21)
[2022-03-07] MEDS: MELATONIN 5 MG TABLETS PO SCH (22:24)
[2022-03-07] MEDS: NICOTINE 10 MG CARTRIDGE (INHALER) IH PRN (22:42)
[2022-03-08] MEDS: methaDONE 40 MG, methaDONE 30 MG PO SCH (05:51)
[2022-03-08] MEDS: DOXYCYCLINE HYCLATE 100 MG TABLET PO SCH ×2 (05:52→17:48)
[2022-03-08] MEDS: chlordiazePOXIDE HCL 25 MG CAPSULE PO SCH ×4 (05:52→22:40)
[2022-03-08] MEDS: NICOTINE 10 MG CARTRIDGE (INHALER) IH PRN (05:59)
[2022-03-08] MEDS: NICOTINE 21 MG/24 HOURS TOPICAL PATCH TD SCH (10:14)
[2022-03-08] MEDS: PRENATAL VITAMINS W/ FOLIC ACID TABLET (FP) PO SCH (10:14)
[2022-03-08] MEDS: SULFAMETHOXAZOLE/TRIMETHOPRIM 800MG/160MG D.S. TABLET PO SCH (10:15)
[2022-03-08] MEDS: LISINOPRIL 20 MG TABLET PO SCH (10:15)
[2022-03-08] MEDS: HYDROCHLOROTHIAZIDE 25 MG TABLET (FP) PO SCH (10:15)
[2022-03-08] MEDS: CLINDAMYCIN PHOSPHATE 1% TOPICAL GEL 30 GM TUBE TP SCH ×2 (10:16→22:00)
[2022-03-08] MEDS: MAG HYDROX/AL HYDROX/SIMETH 30 ML UNIT-DOSE CUP PO PRN (19:52)
[2022-03-08] MEDS: BICTEGRAV/EMTRICIT/TENOFOV (BIKTARVY) 50-200-25 MG TABLET PO SCH (19:55)
[2022-03-08] MEDS: ATORVASTATIN CA 10 MG TABLET (FP) PO SCH (22:40)
[2022-03-08] MEDS: THIAMINE HCL 100 MG TABLET (FP) PO SCH (22:40)
[2022-03-08] MEDS: MELATONIN 5 MG TABLETS PO SCH (23:23)
[2022-03-08] MEDS ORDERED: P-EPHED 60MG/TRIPROLIDI 2.5MG TABLET PO PRN (23:29)
[2022-03-09] MEDS ORDERED: chlordiazePOXIDE HCL 10 MG CAPSULE PO PRN
[2022-03-09] MEDS: chlordiazePOXIDE HCL 10 MG CAPSULE PO SCH ×4 (06:24→22:17)
[2022-03-09] MEDS: methaDONE 40 MG, methaDONE 30 MG PO SCH (06:25)
[2022-03-09] MEDS: DOXYCYCLINE HYCLATE 100 MG TABLET PO SCH ×2 (06:26→17:42)
[2022-03-09 09:40] LABS: HEMATOCRIT 30.4 % (35.4-49); HEMOGLOBIN 10.3 GM/dL (11.7-16.9); MCH 30.6 pg (25.7-33.7); MCHC 33.8 g/dl (32.0-35.9); MEAN CELL VOLUME 90.7 fl (80-96); MEAN PLT VOLUME 9.2 fl (7.5-11.1); PLATELET COUNT 202 10^3/uL (134-434); RBC 3.35 M/mm3 (4.00-5.60); RDW 17.5 % (11.9-15.9); WHITE BLOOD COUNT 4.5 K/mm3 (4.0-10.0)
[2022-03-09 09:55] LABS: CALCIUM 8.7 mg/dL (8.5-10.1)
[2022-03-09 09:56] LABS: ALBUMIN 3.1 g/dl (3.4-5.0); BLOOD UREA NITROGEN 28.2 mg/dL (7-18)
[2022-03-09 09:59] LABS: CREATININE 1.9 mg/dL (0.55-1.3)
[2022-03-09 10:00] LABS: BILIRUBIN,TOTAL 0.3 mg/dL (0.2-1); TOT PROT 7.1 g/dl (6.4-8.2)
[2022-03-09] MEDS: METHOCARBAMOL 500 MG TABLET PO PRN ×2 (10:14→22:19)
[2022-03-09] MEDS: SULFAMETHOXAZOLE/TRIMETHOPRIM 800MG/160MG D.S. TABLET PO SCH (10:14)
[2022-03-09] MEDS: BICTEGRAV/EMTRICIT/TENOFOV (BIKTARVY) 50-200-25 MG TABLET PO SCH (10:14)
[2022-03-09] MEDS: LISINOPRIL 20 MG TABLET PO SCH (10:14)
[2022-03-09] MEDS: HYDROCHLOROTHIAZIDE 25 MG TABLET (FP) PO SCH (10:15)
[2022-03-09] MEDS: CLINDAMYCIN PHOSPHATE 1% TOPICAL GEL 30 GM TUBE TP SCH ×2 (10:15→23:24)
[2022-03-09] MEDS: NICOTINE 21 MG/24 HOURS TOPICAL PATCH TD SCH (10:15)
[2022-03-09] MEDS: PRENATAL VITAMINS W/ FOLIC ACID TABLET (FP) PO SCH (10:15)
[2022-03-09] MEDS: MAG HYDROX/AL HYDROX/SIMETH 30 ML UNIT-DOSE CUP PO PRN (11:21)
[2022-03-09] MEDS: MELATONIN 5 MG TABLETS PO SCH (22:17)
[2022-03-09] MEDS: THIAMINE HCL 100 MG TABLET (FP) PO SCH (22:17)
[2022-03-09] MEDS: ATORVASTATIN CA 10 MG TABLET (FP) PO SCH (22:17)
[2022-03-10] MEDS: chlordiazePOXIDE HCL 10 MG CAPSULE PO SCH ×2 (05:10→18:24)
[2022-03-10] MEDS: methaDONE 40 MG, methaDONE 30 MG PO SCH (05:11)
[2022-03-10] MEDS: DOXYCYCLINE HYCLATE 100 MG TABLET PO SCH ×2 (05:12→18:25)
[2022-03-10] MEDS: PRENATAL VITAMINS W/ FOLIC ACID TABLET (FP) PO SCH (10:48)
[2022-03-10] MEDS: LISINOPRIL 20 MG TABLET PO SCH (10:48)
[2022-03-10] MEDS: HYDROCHLOROTHIAZIDE 25 MG TABLET (FP) PO SCH (10:48)
[2022-03-10] MEDS: SULFAMETHOXAZOLE/TRIMETHOPRIM 800MG/160MG D.S. TABLET PO SCH (10:48)
[2022-03-10] MEDS: CLINDAMYCIN PHOSPHATE 1% TOPICAL GEL 30 GM TUBE TP SCH ×2 (10:49→22:25)
[2022-03-10] MEDS: NICOTINE 10 MG CARTRIDGE (INHALER) IH PRN (10:50)
[2022-03-10] MEDS: NICOTINE 21 MG/24 HOURS TOPICAL PATCH TD SCH (12:04)
[2022-03-10] MEDS: BICTEGRAV/EMTRICIT/TENOFOV (BIKTARVY) 50-200-25 MG TABLET PO SCH (20:08)
[2022-03-10] MEDS: THIAMINE HCL 100 MG TABLET (FP) PO SCH (22:25)
[2022-03-10] MEDS: MELATONIN 5 MG TABLETS PO SCH (22:25)
[2022-03-10] MEDS: ATORVASTATIN CA 10 MG TABLET (FP) PO SCH (22:25)
[2022-03-11] MEDS ORDERED: chlordiazePOXIDE HCL 10 MG CAPSULE PO ONE (05:00)
[2022-03-11] MEDS: methaDONE 40 MG, methaDONE 30 MG PO SCH (05:10)
[2022-03-11] MEDS: DOXYCYCLINE HYCLATE 100 MG TABLET PO SCH (05:13)
[2022-03-11 07:37] VITALS: RESP 18; TEMP 97.1
[2022-03-11] MEDS: BICTEGRAV/EMTRICIT/TENOFOV (BIKTARVY) 50-200-25 MG TABLET PO SCH (09:17)
[2022-03-11] MEDS: HYDROCHLOROTHIAZIDE 25 MG TABLET (FP) PO SCH (09:17)
[2022-03-11] MEDS: NICOTINE 21 MG/24 HOURS TOPICAL PATCH TD SCH (09:17)
[2022-03-11] MEDS: LISINOPRIL 20 MG TABLET PO SCH (09:17)
[2022-03-11] MEDS: SULFAMETHOXAZOLE/TRIMETHOPRIM 800MG/160MG D.S. TABLET PO SCH (09:17)
[2022-03-11] MEDS: PRENATAL VITAMINS W/ FOLIC ACID TABLET (FP) PO SCH (09:18)
[2022-03-11 09:24] VITALS: BP 110/72; PULSE 66
[2022-03-11] MEDS: MAG HYDROX/AL HYDROX/SIMETH 30 ML UNIT-DOSE CUP PO PRN (09:59)
== END 2022-03-11 10:03 | disposition home or self-care (01) | DRG 897 ==
LOC: YASAS 11:01 → Y6N 13:54
PROVIDERS: ADMIT Allergy & Immunology; ATTEND Surgery
PROC: HZ2ZZZZ Detoxification Services for Substance Abuse Treatment (ICD-10-PCS; principal; 2022-03-06)
DX: F11.23 Opioid dependence with withdrawal (principal); F14.20 Cocaine dependence, uncomplicated; L03.115 Cellulitis of right lower limb; L97.319 Non-pressure chronic ulcer of right ankle with unspecified severity; F10.230 Alcohol dependence with withdrawal, uncomplicated; F17.210 Nicotine dependence, cigarettes, uncomplicated; Z21 Asymptomatic human immunodeficiency virus [HIV] infection status; H54.61 Unqualified visual loss, right eye, normal vision left eye; E78.5 Hyperlipidemia, unspecified; I10 Essential (primary) hypertension; K21.9 Gastro-esophageal reflux disease without esophagitis; Z99.89 Dependence on other enabling machines and devices; Z86.19 Personal history of other infectious and parasitic diseases; Z28.310 Unvaccinated for COVID-19; Z28.9 Immunization not carried out for unspecified reason
CPT/HCPCS: 36415; 80053; 85027; 86593; 86780; C9803-CS; U0003; U0005

== ENCOUNTER 2023-04-15 15:09 | Inpatient (IN) | payer OTHER ==
[2023-04-15 17:28] VITALS: BMI 24.2
[2023-04-15] MEDS ORDERED: COLLOIDAL OATMEAL 1 BAR EACH TP PRN (20:57)
[2023-04-15] MEDS ORDERED: IBUPROFEN 400 MG TABLET (FP) PO PRN (20:57)
[2023-04-15] MEDS ORDERED: NALOXONE HCL 0.4 MG/ML VIAL IM PRN (20:57)
[2023-04-15] MEDS ORDERED: POLYETHYLENE GLYCOL (HEALTHYLAX) 3350 17 GM PACKET PO PRN (20:57)
[2023-04-15] MEDS ORDERED: P-EPHED 60MG/TRIPROLIDI 2.5MG TABLET PO PRN (20:57)
[2023-04-15] MEDS ORDERED: ACETAMINOPHEN 325 MG TABLET (FP) PO PRN (20:57)
[2023-04-15] MEDS ORDERED: MAGNESIUM HYDROX 2400MG/30ML ORAL SUSPENSION 30 ML CUP PO PRN (20:57)
[2023-04-15] MEDS ORDERED: BENZONATATE 200 MG CAPSULE PO PRN (20:57)
[2023-04-15] MEDS ORDERED: BENZOCAINE/MENTHOL (CHLORASEPTIC ) LOZENGE MM PRN (20:57)
[2023-04-15] MEDS ORDERED: LOPERAMIDE HCL 2 MG CAPSULE PO PRN (20:57)
[2023-04-15] MEDS ORDERED: guaiFENesin 600 MG TABLET.ER (FP) PO PRN (20:57)
[2023-04-15] MEDS ORDERED: NALOXONE HCL (KLOXXADO) 8 MG SPRAY NS PRN (20:57)
[2023-04-15] MEDS ORDERED: MAG HYDROX/AL HYDROX/SIMETH 30 ML UNIT-DOSE CUP PO PRN (20:57)
[2023-04-15] MEDS ORDERED: IBUPROFEN 600 MG TABLET (FP) PO PRN (20:57)
[2023-04-15] MEDS: ATORVASTATIN CA 10 MG TABLET (FP) PO SCH (21:57)
[2023-04-15] MEDS: THIAMINE HCL 100 MG TABLET (FP) PO SCH (21:57)
[2023-04-15] MEDS: MELATONIN 5 MG TABLETS PO SCH (21:57)
[2023-04-16] MEDS ORDERED: TUBERCULIN PPD 5 TU/0.1ML VIAL ID ONE (08:16)
[2023-04-16] MEDS: methaDONE HCL 40 MG DISPERSABLE TABLET PO SCH (09:12)
[2023-04-16] MEDS: SULFAMETHOXAZOLE/TRIMETHOPRIM 800MG/160MG D.S. TABLET PO SCH (09:13)
[2023-04-16] MEDS: PRENATAL VITAMINS W/ FOLIC ACID TABLET (FP) PO SCH (09:14)
[2023-04-16] MEDS: DOXYCYCLINE HYCLATE 100 MG TABLET PO SCH ×2 (09:14→18:44)
[2023-04-16 11:53] LABS: CHLORIDE 109 mmol/L (98-107); POTASSIUM 5.1 mmol/L (3.5-5.1); SODIUM 138 mmol/L (136-145)
[2023-04-16 12:00] LABS: HEMATOCRIT 24.6 % (35.4-49); HEMOGLOBIN 7.9 GM/dL (11.7-16.9); MCH 26.2 pg (25.7-33.7); MCHC 32.2 g/dl (32.0-35.9); MEAN CELL VOLUME 81.3 fl (80-96); MEAN PLT VOLUME 9.1 fl (7.5-11.1); PLATELET COUNT 221 10^3/uL (134-434); RBC 3.02 M/mm3 (4.00-5.60); RDW 17.3 % (11.9-15.9); WHITE BLOOD COUNT 5.4 K/mm3 (4.0-10.0)
[2023-04-16 12:01] LABS: ALBUMIN 2.7 g/dl (3.4-5.0); ANION GAP 6 mmol/L (4-13); BLOOD UREA NITROGEN 43.5 mg/dL (7-18); CALCIUM 8.4 mg/dL (8.5-10.1); CO2 22 mmol/L (21-32); GLUCOSE,RANDOM 78 mg/dL (74-106)
[2023-04-16 12:04] LABS: SGPT/ALT 16 U/L (13-61)
[2023-04-16 12:05] LABS: SGOT/AST 18 U/L (15-37)
[2023-04-16 12:06] LABS: BILIRUBIN,TOTAL 0.5 mg/dL (0.2-1); TOT PROT 7.6 g/dl (6.4-8.2)
[2023-04-16 12:07] LABS: ALK PHOS 93 U/L (45-117)
[2023-04-16 12:59] LABS: SYPHILIS W/ RPR CONF REACTIVE (NONREACTIVE)
[2023-04-16] MEDS: TAMSULOSIN HCL 0.4 MG CAP PO SCH (14:20)
[2023-04-16] MEDS: BACITRACIN 0.9 GM PACKET TP SCH ×2 (14:21→21:28)
[2023-04-16 18:16] LABS: EPI CELLS 6 /uL (0-25.1); HYALINE CASTS 0 /uL (0-3.1); PH,URINE 5.5 (5.0-8.0); URINE APPEARANCE CLEAR; URINE BACTERIA 3 /uL (0-1359); URINE BILIRUBIN NEGATIVE (NEGATIVE); URINE COLOR YELLOW; URINE GLUCOSE (UA) TRACE (NEGATIVE); URINE KETONE NEGATIVE (NEGATIVE); URINE LEUK ESTERASE NEGATIVE (NEGATIVE); URINE NITRITE NEGATIVE (NEGATIVE); URINE PROTEIN NEGATIVE (NEGATIVE); URINE RBC 22 /uL (0-23.9); URINE UROBILINOGEN 0.2 mg/dL (0.2-1.0); URINE WBC 13 /uL (0-25.8)
[2023-04-16] MEDS: ATORVASTATIN CA 10 MG TABLET (FP) PO SCH (21:28)
[2023-04-16] MEDS: THIAMINE HCL 100 MG TABLET (FP) PO SCH (21:28)
[2023-04-16] MEDS: MELATONIN 5 MG TABLETS PO SCH (21:28)
[2023-04-17] MEDS: methaDONE HCL 40 MG DISPERSABLE TABLET PO SCH (06:23)
[2023-04-17] MEDS: TAMSULOSIN HCL 0.4 MG CAP PO SCH (07:36)
[2023-04-17] MEDS: PRENATAL VITAMINS W/ FOLIC ACID TABLET (FP) PO SCH (09:36)
[2023-04-17] MEDS: BACITRACIN 0.9 GM PACKET TP SCH ×2 (09:36→21:33)
[2023-04-17] MEDS: DOXYCYCLINE HYCLATE 100 MG TABLET PO SCH ×2 (09:37→17:46)
[2023-04-17] MEDS: SULFAMETHOXAZOLE/TRIMETHOPRIM 800MG/160MG D.S. TABLET PO SCH (09:37)
[2023-04-17] MEDS: MELATONIN 5 MG TABLETS PO SCH (21:33)
[2023-04-17] MEDS: ATORVASTATIN CA 10 MG TABLET (FP) PO SCH (21:33)
[2023-04-17] MEDS: THIAMINE HCL 100 MG TABLET (FP) PO SCH (21:33)
[2023-04-18] MEDS: methaDONE HCL 40 MG DISPERSABLE TABLET PO SCH (06:36)
[2023-04-18] MEDS: TAMSULOSIN HCL 0.4 MG CAP PO SCH (07:47)
[2023-04-18] MEDS ORDERED: FERROUS SO4 325 MG TABLET (FP) PO SCH (08:00)
[2023-04-18 08:14] VITALS: BP 125/67; PULSE 69; RESP 17; TEMP 97
[2023-04-18] MEDS: PRENATAL VITAMINS W/ FOLIC ACID TABLET (FP) PO SCH (09:16)
[2023-04-18] MEDS: BACITRACIN 0.9 GM PACKET TP SCH (09:16)
[2023-04-18] MEDS: SULFAMETHOXAZOLE/TRIMETHOPRIM 800MG/160MG D.S. TABLET PO SCH (09:17)
[2023-04-18] MEDS: DOXYCYCLINE HYCLATE 100 MG TABLET PO SCH (09:17)
== END 2023-04-18 11:30 | disposition left against medical advice (07) | DRG 894 ==
LOC: YASAS 15:09 → Y3E 21:11
PROVIDERS: ADMIT Allergy & Immunology; ATTEND Psychiatry & Neurology Pain Medicine
PROC: HZ42ZZZ Group Counseling for Substance Abuse Treatment, Cognitive-Behavioral (ICD-10-PCS; principal; 2023-04-15)
DX: F11.20 Opioid dependence, uncomplicated (principal); L03.115 Cellulitis of right lower limb; L97.311 Non-pressure chronic ulcer of right ankle limited to breakdown of skin; F17.210 Nicotine dependence, cigarettes, uncomplicated; Z21 Asymptomatic human immunodeficiency virus [HIV] infection status; E78.5 Hyperlipidemia, unspecified; H54.61 Unqualified visual loss, right eye, normal vision left eye; I10 Essential (primary) hypertension; N40.0 Benign prostatic hyperplasia without lower urinary tract symptoms; Z28.310 Unvaccinated for COVID-19; Z28.9 Immunization not carried out for unspecified reason
CPT/HCPCS: 36415; 73610-TC-RT-FY; 80053; 80307; 81003; 85027; 86593; 86780; 86803; 87070; 87186; 87205; 87522; 87635

== ENCOUNTER 2023-10-13 14:28 | Inpatient (IN) | payer OTHER ==
[2023-10-13 17:00] VITALS: BMI 29.5
[2023-10-13] MEDS ORDERED: NALOXONE HCL 0.4 MG/ML VIAL IM PRN (18:37)
[2023-10-13] MEDS ORDERED: BENZOCAINE/MENTHOL (CHLORASEPTIC ) LOZENGE MM PRN (18:37)
[2023-10-13] MEDS ORDERED: MAG HYDROX/AL HYDROX/SIMETH 30 ML UNIT-DOSE CUP PO PRN (18:37)
[2023-10-13] MEDS ORDERED: NICOTINE POLACRILEX 2 MG LOZENGE BC PRN (18:37)
[2023-10-13] MEDS ORDERED: NALOXONE HCL (KLOXXADO) 8 MG SPRAY NS PRN (18:37)
[2023-10-13] MEDS ORDERED: LOPERAMIDE HCL 2 MG CAPSULE PO PRN (18:37)
[2023-10-13] MEDS ORDERED: ACETAMINOPHEN 325 MG TABLET (FP) PO PRN (18:37)
[2023-10-13] MEDS ORDERED: guaiFENesin 600 MG TABLET.ER (FP) PO PRN (18:37)
[2023-10-13] MEDS ORDERED: POLYETHYLENE GLYCOL (HEALTHYLAX) 3350 17 GM PACKET PO PRN (18:37)
[2023-10-13] MEDS ORDERED: BISMUTH SUBSALICYLATE 524 MG/30 ML PO PRN (18:37)
[2023-10-13] MEDS ORDERED: IBUPROFEN 400 MG TABLET (FP) PO PRN (18:37)
[2023-10-13] MEDS ORDERED: MAGNESIUM HYDROX 2400MG/30ML ORAL SUSPENSION 30 ML CUP PO PRN (18:37)
[2023-10-13] MEDS ORDERED: BENZONATATE 200 MG CAPSULE PO PRN (18:37)
[2023-10-13] MEDS ORDERED: ONDANSETRON *ODT* 4 MG TABLET SL PRN (18:37)
[2023-10-13] MEDS: IBUPROFEN 600 MG TABLET (FP) PO PRN (19:43)
[2023-10-13] MEDS: P-EPHED 60MG/TRIPROLIDI 2.5MG TABLET PO PRN (20:07)
[2023-10-13] MEDS: ASPIRIN COATED 81 MG TABLET.EC PO SCH (20:07)
[2023-10-13] MEDS ORDERED: FLONASE IH SCH (22:00)
[2023-10-13] MEDS: THIAMINE 100 MG TABLET PO SCH (22:18)
[2023-10-13] MEDS: ATORVASTATIN CA 10 MG TABLET (FP) PO SCH (22:18)
[2023-10-13] MEDS: BRIMONIDINE TARTRATE 0.15% OPHTHALMIC 5 ML BOTTLE OU SCH (22:18)
[2023-10-13] MEDS: FLUTICASONE PROP 0.05% 16 GM NASAL SPRAY NS SCH (22:18)
[2023-10-13] MEDS: MELATONIN 5 MG TABLETS PO SCH (22:18)
[2023-10-13] MEDS: LABETALOL HCL 100 MG TABLET (FP) PO SCH (22:35)
[2023-10-14] MEDS: ALBUTEROL SO4 HFA INHALER IH PRN (01:42)
[2023-10-14] MEDS: TAMSULOSIN HCL 0.4 MG CAP PO SCH (08:29)
[2023-10-14 08:52] VITALS: RESP 18; TEMP 97.7
[2023-10-14] MEDS: FOLIC ACID 1 MG TABLET (FP) PO SCH (09:20)
[2023-10-14] MEDS: PRENATAL VITAMINS W/ FOLIC ACID TABLET (FP) PO SCH (09:20)
[2023-10-14] MEDS: BICTEGRAV/EMTRICIT/TENOFOV (BIKTARVY) 50-200-25 MG TABLET PO SCH (09:21)
[2023-10-14] MEDS: DOXYCYCLINE HYCLATE 100 MG TABLET PO SCH (09:21)
[2023-10-14] MEDS: amLODIPine BESYLATE 10 MG TABLET (FP) PO SCH (09:21)
[2023-10-14] MEDS: methaDONE HCL 10 MG TABLET (FOR DETOX USE ONLY) PO ONE (11:23)
[2023-10-14] MEDS: BUPRENORPHINE/NALOXONE 0.5 MG/0.125 MG FILM SL ONE (11:25)
[2023-10-14 12:16] LABS: HEMATOCRIT 29.7 % (35.4-49); HEMOGLOBIN 9.5 GM/dL (11.7-16.9); MCH 27.7 pg (25.7-33.7); MEAN CELL VOLUME 86.6 fl (80-96); MEAN PLT VOLUME 9.5 fl (7.5-11.1); PLATELET COUNT 249 10^3/uL (134-434); RBC 3.43 M/mm3 (4.00-5.60); RDW 16.5 % (11.9-15.9); WHITE BLOOD COUNT 5.2 K/mm3 (4.0-10.0)
[2023-10-14 12:20] LABS: CHLORIDE 108 mmol/L (98-107); POTASSIUM 4.7 mmol/L (3.5-5.1); SODIUM 137 mmol/L (136-145)
[2023-10-14 12:25] LABS: ALBUMIN 2.8 g/dl (3.4-5.0)
[2023-10-14 12:26] LABS: ANION GAP 4 mmol/L (4-13); BLOOD UREA NITROGEN 24.4 mg/dL (7-18); CO2 25 mmol/L (21-32); GLUCOSE,RANDOM 94 mg/dL (74-106)
[2023-10-14 12:28] LABS: CREATININE 1.4 mg/dL (0.55-1.3); SGOT/AST 21 U/L (15-37); SGPT/ALT 21 U/L (13-61)
[2023-10-14 12:29] LABS: BILIRUBIN,TOTAL 0.4 mg/dL (0.2-1); TOT PROT 7.6 g/dl (6.4-8.2)
[2023-10-14 12:30] LABS: ALK PHOS 126 U/L (45-117)
[2023-10-14 12:44] VITALS: BP 118/63; PULSE 64
[2023-10-14] MEDS: cloNIDine HCL 0.1 MG TABLET PO SCH (13:03)
[2023-10-14] MEDS ORDERED: BUPRENORPHINE/NALOXONE 0.5 MG/0.125 MG FILM SL ONE (23:00)
[2023-10-15] MEDS ORDERED: BUPRENORPHINE/NALOXONE 0.5 MG/0.125 MG FILM SL SCH (10:00)
[2023-10-16] MEDS ORDERED: BUPRENORPHINE/NALOXONE 2 MG/0.5 MG FILM PACKET SL SCH (10:00)
[2023-10-16] MEDS ORDERED: methaDONE HCL 10 MG TABLET (FOR DETOX USE ONLY) PO ONE (10:00)
[2023-10-17] MEDS ORDERED: BUPRENORPHINE/NALOXONE 4 MG/1 MG FILM PACKET SL SCH (10:00)
[2023-10-18] MEDS ORDERED: BUPRENORPHINE/NALOXONE 8 MG/2 MG FILM PACKET SL SCH (10:00)
[2023-10-18] MEDS ORDERED: methaDONE HCL 10 MG TABLET (FOR DETOX USE ONLY) PO ONE (10:00)
[2023-10-19] MEDS ORDERED: BUPRENORPHINE/NALOXONE 8 MG/2 MG FILM PACKET SL SCH (10:00)
== END 2023-10-14 16:34 | disposition left against medical advice (07) | DRG 894 ==
LOC: YASAS 14:28 → UNDOADMIN 18:50 → Y6N 18:50 → UNDODISIN 10-14 16:34
PROVIDERS: ADMIT Allergy & Immunology; ATTEND Surgery
PROC: HZ2ZZZZ Detoxification Services for Substance Abuse Treatment (ICD-10-PCS; principal; 2023-10-13)
DX: F11.23 Opioid dependence with withdrawal (principal); F14.20 Cocaine dependence, uncomplicated; L97.311 Non-pressure chronic ulcer of right ankle limited to breakdown of skin; F17.210 Nicotine dependence, cigarettes, uncomplicated; Z21 Asymptomatic human immunodeficiency virus [HIV] infection status; D64.9 Anemia, unspecified; E78.5 Hyperlipidemia, unspecified; I10 Essential (primary) hypertension; K21.9 Gastro-esophageal reflux disease without esophagitis; J45.909 Unspecified asthma, uncomplicated; N40.0 Benign prostatic hyperplasia without lower urinary tract symptoms; N28.9 Disorder of kidney and ureter, unspecified; Z86.19 Personal history of other infectious and parasitic diseases; Z99.89 Dependence on other enabling machines and devices; Z79.899 Other long term (current) drug therapy
CPT/HCPCS: 36415; 80053; 80307; 85027; 86593; 86780; 93005; 93010

== ENCOUNTER 2024-05-04 15:25 | Inpatient (IN) | payer OTHER ==
[2024-05-04 15:57] VITALS: BMI 27.9
[2024-05-04] MEDS ORDERED: ACETAMINOPHEN 325 MG TABLET (FP) PO PRN (17:08)
[2024-05-04] MEDS ORDERED: IBUPROFEN 600 MG TABLET (FP) PO PRN (17:08)
[2024-05-04] MEDS ORDERED: POLYETHYLENE GLYCOL (HEALTHYLAX) 3350 17 GM PACKET PO PRN (17:08)
[2024-05-04] MEDS ORDERED: ONDANSETRON *ODT* 4 MG TABLET SL PRN (17:08)
[2024-05-04] MEDS ORDERED: METHOCARBAMOL 500 MG TABLET PO PRN (17:08)
[2024-05-04] MEDS ORDERED: BENZOCAINE/MENTHOL (CHLORASEPTIC ) LOZENGE MM PRN (17:08)
[2024-05-04] MEDS ORDERED: MAGNESIUM HYDROX 2400MG/30ML ORAL SUSPENSION 30 ML CUP PO PRN (17:08)
[2024-05-04] MEDS ORDERED: DICYCLOMINE HCL 10 MG CAPSULE PO PRN (17:08)
[2024-05-04] MEDS ORDERED: IBUPROFEN 400 MG TABLET (FP) PO PRN (17:08)
[2024-05-04] MEDS ORDERED: LORazepam 1 MG TABLET PO PRN (17:08)
[2024-05-04] MEDS ORDERED: LOPERAMIDE HCL 2 MG CAPSULE PO PRN (17:08)
[2024-05-04] MEDS ORDERED: NALOXONE (NARCAN) HCL 4 MG/0.1 ML SPRAY NS PRN (17:08)
[2024-05-04] MEDS ORDERED: hydrOXYzine PAMOATE 25 MG CAPSULE (FP) PO PRN (17:08)
[2024-05-04] MEDS ORDERED: BENZONATATE 200 MG CAPSULE PO PRN (17:08)
[2024-05-04] MEDS ORDERED: ALBUTEROL SO4 HFA INHALER IH PRN (19:19)
[2024-05-04] MEDS: MAG HYDROX/AL HYDROX/SIMETH 30 ML UNIT-DOSE CUP PO PRN (19:50)
[2024-05-04] MEDS: FLUTICASONE PROP 0.05% 16 GM NASAL SPRAY NS SCH (22:22)
[2024-05-04] MEDS: BRIMONIDINE TARTRATE 0.15% OPHTHALMIC 5 ML BOTTLE OD SCH (22:24)
[2024-05-04] MEDS: LABETALOL HCL 100 MG TABLET (FP) PO SCH (22:25)
[2024-05-04] MEDS: TAMSULOSIN HCL 0.4 MG CAP PO SCH (22:27)
[2024-05-04] MEDS: MELATONIN 5 MG TABLETS PO SCH (22:27)
[2024-05-04] MEDS: ATORVASTATIN CA 10 MG TABLET (FP) PO SCH (22:27)
[2024-05-04] MEDS: APIXABAN 5 MG TABLET PO SCH (22:27)
[2024-05-04] MEDS: LORazepam 1 MG TABLET PO SCH (22:27)
[2024-05-04] MEDS: THIAMINE 100 MG TABLET PO SCH (22:27)
[2024-05-04] MEDS ORDERED: LORazepam 2 MG TABLET PO SCH (23:00)
[2024-05-05] MEDS: DOLUTEGRAVIR SODIUM 50 MG TABLET (NON-FORMULARY) PO SCH (07:33)
[2024-05-05] MEDS: RILPIVIRINE HCL 25 MG TABLET PO SCH (07:33)
[2024-05-05] MEDS: methaDONE HCL 40 MG DISPERSABLE TABLET PO SCH (09:53)
[2024-05-05] MEDS ORDERED: JULUCA PO SCH (10:00)
[2024-05-05] MEDS: PRENATAL VITAMINS W/ FOLIC ACID TABLET (FP) PO SCH (10:23)
[2024-05-05] MEDS: DOXYCYCLINE HYCLATE 100 MG TABLET PO SCH (10:24)
[2024-05-05] MEDS: amLODIPine BESYLATE 10 MG TABLET (FP) PO SCH (10:24)
[2024-05-05] MEDS: ASPIRIN COATED 81 MG TABLET.EC PO SCH (10:24)
[2024-05-05] MEDS: guaiFENesin 600 MG TABLET.ER (FP) PO PRN (13:31)
[2024-05-05] MEDS: P-EPHED 60MG/TRIPROLIDI 2.5MG TABLET PO PRN (13:34)
[2024-05-06] MEDS: LORazepam 1 MG TABLET PO SCH (05:08)
[2024-05-06] MEDS: FLUTICASONE PROP 0.05% 16 GM NASAL SPRAY NS ONE ×2 (12:16→12:17)
[2024-05-07] MEDS ORDERED: LORazepam 0.5 MG TABLET PO PRN
[2024-05-07] MEDS: LORazepam 0.5 MG TABLET PO SCH (05:23)
[2024-05-07] MEDS: BISMUTH SUBSALICYLATE 524 MG/30 ML PO PRN (12:23)
[2024-05-07] MEDS: SODIUM CHLORIDE NASAL SPRAY 44 ML BOTTLE NS PRN (21:03)
[2024-05-08] MEDS: LORazepam 0.5 MG TABLET PO ONE (05:27)
[2024-05-08] MEDS ORDERED: NALOXONE (NYS OPIOID OVERDOSE PROGRAM) 4 MG/0.1 ML SPRAY NS PRN (08:00)
[2024-05-08 09:28] VITALS: BP 96/60; PULSE 87; RESP 18; TEMP 97.7
== END 2024-05-08 11:36 | disposition other institution (70) | DRG 897 ==
LOC: YASAS 15:25 → Y3N 18:50
PROVIDERS: ADMIT Allergy & Immunology; ATTEND Surgery
PROC: HZ2ZZZZ Detoxification Services for Substance Abuse Treatment (ICD-10-PCS; principal; 2024-05-04)
DX: F10.230 Alcohol dependence with withdrawal, uncomplicated (principal); F11.20 Opioid dependence, uncomplicated; F14.20 Cocaine dependence, uncomplicated; L97.319 Non-pressure chronic ulcer of right ankle with unspecified severity; F17.210 Nicotine dependence, cigarettes, uncomplicated; Z21 Asymptomatic human immunodeficiency virus [HIV] infection status; E78.5 Hyperlipidemia, unspecified; H40.9 Unspecified glaucoma; I10 Essential (primary) hypertension; K21.9 Gastro-esophageal reflux disease without esophagitis; N40.0 Benign prostatic hyperplasia without lower urinary tract symptoms; Z86.718 Personal history of other venous thrombosis and embolism; Z79.01 Long term (current) use of anticoagulants
CPT/HCPCS: 80305; 80307; 87811; 93005; 93010

== ENCOUNTER 2024-05-08 11:22 | Inpatient (IN) | payer OTHER ==
[2024-05-08] MEDS: MAG HYDROX/AL HYDROX/SIMETH 30 ML UNIT-DOSE CUP PO PRN ×2 (14:05→21:31)
[2024-05-08] MEDS: BRIMONIDINE TARTRATE 0.15% OPHTHALMIC 5 ML BOTTLE OD SCH (15:11)
[2024-05-08] MEDS ORDERED: NALOXONE (NARCAN) HCL 4 MG/0.1 ML SPRAY NS PRN (17:23)
[2024-05-08] MEDS ORDERED: NALOXONE HCL 0.4 MG/ML VIAL IVPUSH PRN (17:23)
[2024-05-08] MEDS ORDERED: POLYETHYLENE GLYCOL (HEALTHYLAX) 3350 17 GM PACKET PO PRN (17:23)
[2024-05-08] MEDS ORDERED: METHOCARBAMOL 500 MG TABLET PO PRN (17:23)
[2024-05-08] MEDS ORDERED: IBUPROFEN 400 MG TABLET (FP) PO PRN (17:23)
[2024-05-08] MEDS ORDERED: LOPERAMIDE HCL 2 MG CAPSULE PO PRN (17:23)
[2024-05-08] MEDS ORDERED: BENZONATATE 200 MG CAPSULE PO PRN (17:23)
[2024-05-08] MEDS ORDERED: MAGNESIUM HYDROX 2400MG/30ML ORAL SUSPENSION 30 ML CUP PO PRN (17:23)
[2024-05-08] MEDS ORDERED: IBUPROFEN 600 MG TABLET (FP) PO PRN (17:23)
[2024-05-08] MEDS: ATORVASTATIN CA 10 MG TABLET (FP) PO SCH (21:24)
[2024-05-08] MEDS: APIXABAN 5 MG TABLET PO SCH (21:25)
[2024-05-08] MEDS: TAMSULOSIN HCL 0.4 MG CAP PO SCH (21:25)
[2024-05-08] MEDS: FLUTICASONE PROP 0.05% 16 GM NASAL SPRAY NS SCH (21:27)
[2024-05-08] MEDS: LABETALOL HCL 100 MG TABLET (FP) PO SCH (21:27)
[2024-05-08] MEDS: MELATONIN 5 MG TABLETS PO SCH (21:27)
[2024-05-08] MEDS: THIAMINE 100 MG TABLET PO SCH (21:29)
[2024-05-08] MEDS: ALBUTEROL SO4 HFA INHALER IH PRN (21:36)
[2024-05-08] MEDS: guaiFENesin 600 MG TABLET.ER (FP) PO PRN (23:15)
[2024-05-08] MEDS: BENZOCAINE/MENTHOL (CHLORASEPTIC ) LOZENGE MM PRN (23:17)
[2024-05-09] MEDS: SODIUM CHLORIDE NASAL SPRAY 44 ML BOTTLE NS PRN (00:48)
[2024-05-09] MEDS: hydrOXYzine PAMOATE 25 MG CAPSULE (FP) PO PRN (00:49)
[2024-05-09] MEDS: methaDONE HCL 40 MG DISPERSABLE TABLET PO SCH (06:43)
[2024-05-09] MEDS: RILPIVIRINE HCL 25 MG TABLET PO SCH (07:36)
[2024-05-09] MEDS: DOLUTEGRAVIR SODIUM 50 MG TABLET (NON-FORMULARY) PO SCH (07:36)
[2024-05-09] MEDS: PRENATAL VITAMINS W/ FOLIC ACID TABLET (FP) PO SCH (09:32)
[2024-05-09] MEDS: amLODIPine BESYLATE 10 MG TABLET (FP) PO SCH (09:32)
[2024-05-09] MEDS: ASPIRIN COATED 81 MG TABLET.EC PO SCH (09:32)
[2024-05-09] MEDS ORDERED: PATIENT'S OWN MEDICATION (NON-FORMULARY) (Dolutegravir/Rilpivirine [Juluca 50-25 Mg Tablet PO SCH (10:00)
[2024-05-09] MEDS: P-EPHED 60MG/TRIPROLIDI 2.5MG TABLET PO PRN (12:18)
[2024-05-10] MEDS: SALICYLIC ACID (WART REMOVER) 9 ML LIQUID TP SCH (11:15)
[2024-05-10] MEDS: FLUTICASONE PROP 0.05% 16 GM NASAL SPRAY NS SCH (12:15)
[2024-05-10] MEDS: GABAPENTIN 100 MG CAPSULE PO SCH (13:58)
[2024-05-10] MEDS: BACLOFEN 10 MG TABLET (FP) PO SCH (21:24)
[2024-05-11] MEDS ORDERED: BACITRACIN ZINC 15 GM TUBE TOPICAL OINTMENT TP SCH (13:45)
[2024-05-11] MEDS: BRIMONIDINE TARTRATE 0.15% OPHTHALMIC 5 ML BOTTLE OD SCH (14:57)
[2024-05-11] MEDS: BACITRACIN 0.9 GM PACKET TP SCH (21:18)
[2024-05-12] MEDS ORDERED: PSEUDOEPHEDRINE HCL 30 MG TABLET PO PRN (15:31)
[2024-05-12] MEDS: P-EPHED 60MG/TRIPROLIDI 2.5MG TABLET PO PRN (15:42)
[2024-05-13] MEDS ORDERED: SULFAMETHOXAZOLE/TRIMETHOPRIM 800MG/160MG D.S. TABLET PO SCH (20:30)
[2024-05-13] MEDS: ALBUTEROL SO4 2.5/IPRATROPIUM 0.5 INH SOL 3 ML VIAL.NEB. NEB SCH (20:40)
[2024-05-13] MEDS: SULFAMETHOXAZOLE/TRIMETHOPRIM 800MG/160MG D.S. TABLET PO SCH (21:55)
[2024-05-15] MEDS: ALBUTEROL SO4 2.5/IPRATROPIUM 0.5 INH SOL 3 ML VIAL.NEB. NEB PRN (07:13)
[2024-05-16] MEDS: methaDONE HCL 40 MG DISPERSABLE TABLET PO SCH (06:46)
[2024-05-17] MEDS: DOXYCYCLINE HYCLATE 100 MG TABLET PO ONE (13:01)
[2024-05-17] MEDS: DOXYCYCLINE HYCLATE 100 MG TABLET PO SCH (17:55)
[2024-05-18] MEDS: ACETAMINOPHEN 325 MG TABLET (FP) PO PRN (02:44)
[2024-05-18] MEDS: DOLUTEGRAVIR SODIUM 50 MG TABLET (NON-FORMULARY) PO SCH (06:46)
[2024-05-18] MEDS: RILPIVIRINE HCL 25 MG TABLET PO SCH (06:51)
[2024-05-21 06:28] VITALS: BP 132/67; PULSE 82; RESP 17; TEMP 97.5
[2024-05-21] MEDS: NALOXONE (NYS OPIOID OVERDOSE PROGRAM) 4 MG/0.1 ML SPRAY NS SCH (08:54)
== END 2024-05-21 10:13 | disposition home or self-care (01) | DRG 895 ==
LOC: YASAS 11:22 → Y3E 11:25 → Y3NR 05-12 22:06 → Y3E 05-12 22:08 → Y3NR 05-13 18:09 → Y5N 05-14 11:43
PROVIDERS: ADMIT Psychiatry & Neurology Pain Medicine; ATTEND Psychiatry & Neurology Pain Medicine
PROC: HZ42ZZZ Group Counseling for Substance Abuse Treatment, Cognitive-Behavioral (ICD-10-PCS; principal; 2024-05-08)
DX: F11.20 Opioid dependence, uncomplicated (principal); F14.20 Cocaine dependence, uncomplicated; L03.115 Cellulitis of right lower limb; L97.319 Non-pressure chronic ulcer of right ankle with unspecified severity; F10.20 Alcohol dependence, uncomplicated; F17.210 Nicotine dependence, cigarettes, uncomplicated; Z21 Asymptomatic human immunodeficiency virus [HIV] infection status; H40.9 Unspecified glaucoma; I10 Essential (primary) hypertension; E78.5 Hyperlipidemia, unspecified; N40.0 Benign prostatic hyperplasia without lower urinary tract symptoms; Z86.718 Personal history of other venous thrombosis and embolism; Z79.01 Long term (current) use of anticoagulants; Z79.82 Long term (current) use of aspirin; Z99.89 Dependence on other enabling machines and devices
CPT/HCPCS: 36415; 71045-TC-FY; 86803; 87522; 94640; J0475

== ENCOUNTER 2025-02-07 14:37 | Inpatient (IN) | payer OTHER ==
[2025-02-07 15:13] VITALS: BMI 31.9
[2025-02-07] MEDS ORDERED: IBUPROFEN 400 MG TABLET (FP) PO PRN (15:47)
[2025-02-07] MEDS ORDERED: ONDANSETRON *ODT* 4 MG TABLET SL PRN (15:47)
[2025-02-07] MEDS ORDERED: NALOXONE (NARCAN) HCL 4 MG/0.1 ML SPRAY NS PRN (15:47)
[2025-02-07] MEDS ORDERED: BENZONATATE 200 MG CAPSULE PO PRN (15:47)
[2025-02-07] MEDS ORDERED: MAG HYDROX/AL HYDROX/SIMETH 30 ML UNIT-DOSE CUP PO PRN (15:47)
[2025-02-07] MEDS ORDERED: IBUPROFEN 600 MG TABLET (FP) PO PRN (15:47)
[2025-02-07] MEDS ORDERED: NICOTINE POLACRILEX 2 MG GUM BUC PRN (15:47)
[2025-02-07] MEDS ORDERED: POLYETHYLENE GLYCOL (HEALTHYLAX) 3350 17 GM PACKET PO PRN (15:47)
[2025-02-07] MEDS ORDERED: ACETAMINOPHEN 325 MG TABLET (FP) PO PRN (15:47)
[2025-02-07] MEDS ORDERED: MAGNESIUM HYDROX 2400MG/30ML ORAL SUSPENSION 30 ML CUP PO PRN (15:47)
[2025-02-07] MEDS ORDERED: guaiFENesin 600 MG TABLET.ER (FP) PO PRN (15:47)
[2025-02-07] MEDS ORDERED: BENZOCAINE/MENTHOL (CHLORASEPTIC ) LOZENGE MM PRN (15:47)
[2025-02-07] MEDS ORDERED: BISMUTH SUBSALICYLATE 524 MG/30 ML PO PRN (15:47)
[2025-02-07] MEDS ORDERED: LOPERAMIDE HCL 2 MG CAPSULE PO PRN (15:47)
[2025-02-07] MEDS: THIAMINE 100 MG TABLET PO SCH (22:37)
[2025-02-07] MEDS: MELATONIN 5 MG TABLETS PO SCH (22:37)
[2025-02-07] MEDS: P-EPHED 60MG/TRIPROLIDI 2.5MG TABLET PO PRN (23:48)
[2025-02-08 11:18] LABS: MCHC 28.3 g/dl (32.3-36.5); MEAN CELL VOLUME 81.9 fl (79.0-92.2); MEAN PLT VOLUME 11.3 fl (9.4-12.4); RDW 18.7 % (12.2-16.6)
[2025-02-08 11:39] LABS: GLUCOSE,RANDOM 85 mg/dL (74-106)
[2025-02-08 11:40] LABS: TOT PROT 7.0 g/dl (6.4-8.2)
[2025-02-08 11:41] LABS: CO2 23 mmol/L (21-32)
[2025-02-08 11:42] LABS: ALK PHOS 89 U/L (40-150)
[2025-02-08 11:45] LABS: SGOT/AST 18 U/L (5-34); SGPT/ALT 8 U/L (0-55)
[2025-02-08 12:15] LABS: CREATININE 1.41 mg/dL (0.55-1.3)
[2025-02-08 12:22] LABS: SYPHILIS W/ RPR CONF REACTIVE (NONREACTIVE)
[2025-02-08] MEDS: PRENATAL VITAMINS W/ FOLIC ACID TABLET (FP) PO SCH (12:26)
[2025-02-08 15:34] LABS: RPR REFLEX REACTIVE 1:1 (NONREACTIVE)
[2025-02-08] MEDS: OXYMETAZOLINE 0.05% NASAL SOLUTION 15 ML BOTTLE NS PRN (16:05)
[2025-02-08] MEDS: BACLOFEN 10 MG TABLET (FP) PO PRN (21:39)
[2025-02-09 12:53] VITALS: BP 127/66; PULSE 66; RESP 15; TEMP 98
== END 2025-02-09 14:04 | disposition other institution (70) | DRG 897 ==
LOC: YASAS 14:37 → Y6N 16:52
PROVIDERS: ADMIT Neuromusculoskeletal Medicine & OMM; ATTEND Counselor Addiction (Substance Use Disorder)
PROC: HZ2ZZZZ Detoxification Services for Substance Abuse Treatment (ICD-10-PCS; principal; 2025-02-07)
DX: F11.20 Opioid dependence, uncomplicated (principal); F14.20 Cocaine dependence, uncomplicated; F19.282 Other psychoactive substance dependence with psychoactive substance-induced sleep disorder; L97.319 Non-pressure chronic ulcer of right ankle with unspecified severity; F10.20 Alcohol dependence, uncomplicated; F17.210 Nicotine dependence, cigarettes, uncomplicated; Z21 Asymptomatic human immunodeficiency virus [HIV] infection status; E78.5 Hyperlipidemia, unspecified; I10 Essential (primary) hypertension; K21.9 Gastro-esophageal reflux disease without esophagitis; H40.9 Unspecified glaucoma; H54.61 Unqualified visual loss, right eye, normal vision left eye; N40.0 Benign prostatic hyperplasia without lower urinary tract symptoms; Z96.651 Presence of right artificial knee joint; Z86.19 Personal history of other infectious and parasitic diseases; Z86.718 Personal history of other venous thrombosis and embolism; Z99.89 Dependence on other enabling machines and devices
CPT/HCPCS: 36415; 80053; 80307; 85027; 86593; 86780; 93005; 93010; J0475

== ENCOUNTER 2025-02-09 14:10 | Inpatient (IN) | payer OTHER ==
[2025-02-09 14:32] VITALS: RESP 16
[2025-02-09] MEDS ORDERED: IBUPROFEN 400 MG TABLET (FP) PO PRN (15:01)
[2025-02-09] MEDS ORDERED: NALOXONE (NARCAN) HCL 4 MG/0.1 ML SPRAY NS PRN (15:01)
[2025-02-09] MEDS ORDERED: POLYETHYLENE GLYCOL (HEALTHYLAX) 3350 17 GM PACKET PO PRN (15:01)
[2025-02-09] MEDS ORDERED: BENZOCAINE/MENTHOL (CHLORASEPTIC ) LOZENGE MM PRN (15:01)
[2025-02-09] MEDS ORDERED: IBUPROFEN 600 MG TABLET (FP) PO PRN (15:01)
[2025-02-09] MEDS ORDERED: ACETAMINOPHEN 325 MG TABLET (FP) PO PRN (15:01)
[2025-02-09] MEDS ORDERED: MAGNESIUM HYDROX 2400MG/30ML ORAL SUSPENSION 30 ML CUP PO PRN (15:01)
[2025-02-09] MEDS ORDERED: NALOXONE HCL 0.4 MG/ML VIAL IVPUSH PRN (15:01)
[2025-02-09] MEDS ORDERED: BENZONATATE 200 MG CAPSULE PO PRN (15:01)
[2025-02-09] MEDS ORDERED: MAG HYDROX/AL HYDROX/SIMETH 30 ML UNIT-DOSE CUP PO PRN (15:01)
[2025-02-09] MEDS ORDERED: LOPERAMIDE HCL 2 MG CAPSULE PO PRN (15:01)
[2025-02-09] MEDS: guaiFENesin 600 MG TABLET.ER (FP) PO PRN (15:53)
[2025-02-09] MEDS: TAMSULOSIN HCL 0.4 MG CAP PO SCH (21:16)
[2025-02-09] MEDS: APIXABAN 5 MG TABLET PO SCH (21:16)
[2025-02-09] MEDS: MELATONIN 5 MG TABLETS PO SCH (21:16)
[2025-02-09] MEDS: ATORVASTATIN CA 10 MG TABLET (FP) PO SCH (21:16)
[2025-02-09] MEDS: THIAMINE 100 MG TABLET PO SCH (21:16)
[2025-02-09] MEDS: OXYMETAZOLINE 0.05% NASAL SOLUTION 15 ML BOTTLE NS SCH (21:17)
[2025-02-09] MEDS: LABETALOL HCL 100 MG TABLET (FP) PO SCH (21:29)
[2025-02-09] MEDS: METHOCARBAMOL 500 MG TABLET PO PRN (22:56)
[2025-02-09] MEDS: hydrOXYzine PAMOATE 25 MG CAPSULE (FP) PO PRN (22:56)
[2025-02-10 09:34] VITALS: BP 112/66; PULSE 100; TEMP 97.5
[2025-02-10] MEDS ORDERED: ASPIRIN COATED 81 MG TABLET.EC PO SCH (10:00)
[2025-02-10] MEDS ORDERED: FOLIC ACID 1 MG TABLET (FP) PO SCH (10:00)
[2025-02-10] MEDS ORDERED: amLODIPine BESYLATE 10 MG TABLET (FP) PO SCH (10:00)
[2025-02-10] MEDS ORDERED: PRENATAL VITAMINS W/ FOLIC ACID TABLET (FP) PO SCH (10:00)
== END 2025-02-10 10:06 | disposition left against medical advice (07) | DRG 894 ==
LOC: YASAS 14:10 → Y3NR 14:11
PROVIDERS: ADMIT Psychiatry & Neurology Pain Medicine; ATTEND Psychiatry & Neurology Pain Medicine
PROC: HZ42ZZZ Group Counseling for Substance Abuse Treatment, Cognitive-Behavioral (ICD-10-PCS; principal; 2025-02-09)
DX: F10.20 Alcohol dependence, uncomplicated (principal); F11.20 Opioid dependence, uncomplicated; F14.20 Cocaine dependence, uncomplicated; L97.319 Non-pressure chronic ulcer of right ankle with unspecified severity; F17.210 Nicotine dependence, cigarettes, uncomplicated; Z21 Asymptomatic human immunodeficiency virus [HIV] infection status; E78.5 Hyperlipidemia, unspecified; H40.9 Unspecified glaucoma; I10 Essential (primary) hypertension; N40.0 Benign prostatic hyperplasia without lower urinary tract symptoms; Z99.89 Dependence on other enabling machines and devices